=== PATIENT | female | born 1990 | race Caucasian/White ===

== ENCOUNTER 2017-08-23 11:34 | Emergency (ER) | payer BC, OTHER ==
[~2017-08-23] VITALS: Ht 167.6 cm; Wt 70.3 kg
[2017-08-23] MEDS ORDERED: ONDANSETRON 4 MG/2 ML (SDV) Z0FRAN ONE (13:24)
[2017-08-23] MEDS ORDERED: MIRT15TA PO (13:25)
[2017-08-23] MEDS ORDERED: ONDA4TAB8 SL (13:25)
[2017-08-23] MEDS ORDERED: ONDANSETRON 4 MG/2 ML (SDV) Z0FRAN IVP ONE (13:30)
[2017-08-23] MEDS ORDERED: NS IV 1000 ML 1,000 ML ONE (13:35)
[2017-08-23] MEDS ORDERED: NS IV 1000 ML 1,000 ML IV ONE (13:37)
[2017-08-23 13:51] LABS: BILIRUBIN,URINE NEGATIVE (NEGATIVE); CLARITY,URINE CLEAR; COLOR,URINE YELLOW; GLUCOSE, URINE (UA) NEGATIVE (NEGATIVE); KETONES,URINE 1+ (NEGATIVE); LEUKOCYTE ESTERASE ,URINE 1+ (NEGATIVE); NITRITE,URINE POSITIVE (NEGATIVE); PH,URINE 8 (5-9); PROTEIN,URINE NEGATIVE (NEGATIVE); UROBILINOGEN,URINE NORMAL (NORMAL)
--- NOTE | 2017-08-23 13:51 | ED General ---
General Chief Complaint: Abdominal/GI Problems Stated Complaint: VOMITTING/ DIARHEA/ CONFUSED Nursing Triage Note: PT STATES RLQ ABD PAIN AND NV, ABOUT A MONTH AGO WAS TOLD SHE HAD SUGAR IN HER URINE AND WILL GO TOMORROW TO SEE IF SHE HAS DIABETES. HAS BEEN GETTING SICK IN THE MORNINGS FOR ABOUT A MONTH. Nursing Sepsis Screen: No Definite Risk Source of Information: Patient Exam Limitations: No Limitations History of Present Illness Date Seen by Provider: August 23, 2017 Time Seen by Provider: 13:30 Initial Comments Here with report of intermittent nausea and vomiting daily. She is reportedly been noted to have diabetes and she is supposed to see Dr. Oleary tomorrow. She has been getting sick in the mornings daily for about a month. She is been started on metformin. Her blood sugar this morning was high on her meter. She has multiple episodes of blood sugar in the 300 range. She is recently started on metformin. Does complain of some bladder pain. Reports urinating a lot and having increased thirst. Timing/Duration: Getting Worse, Other (one month) Severity: Moderate Associated Systoms: No Chest Pain, No Cough, No Fever/Chills; Nausea/Vomiting; No Shortness of Air; Weakness Allergies and Home Medications Allergies Coded Allergies: azithromycin (Verified Allergy, Severe, 08/23/17) Home Medications Mirtazapine 15 Mg Tablet, 15 MG PO HS, (Reported) Ondansetron 4 Mg Tab.rapdis, 4 MG SL Q4H PRN for NAUSEA/VOMITING-1ST LINE, ( Reported) Patient Home Medication List Home Medication List Reviewed: Yes Review of Systems Constitutional: see HPI; No chills, No fever EENTM: no symptoms reported Respiratory: no symptoms reported; No cough, No short of breath Cardiovascular: no symptoms reported Gastrointestinal: abdominal pain, nausea, vomiting Genitourinary: frequency, pain : No Musculoskeletal: no symptoms reported Skin: no symptoms reported All Other Systems Reviewed Negative Unless Noted: Yes Past Ppfhvoo-Oyjncm-Nqxoet Hx Past Med/Social Hx: Reviewed Nursing Past Med/Soc Hx Patient Social History Alcohol Use: Denies Use Recreational Drug Use: Yes (THC) Smoking Status: Never a Smoker Recent Foreign Travel: No Contact w/Someone Who Travel: No Recent Infectious Disease Expo: No Recent Hopitalizations: No Seasonal Allergies Seasonal Allergies: Yes Past Medical History Surgeries: Yes (PLEURAL EFFUSION, UPPER AND LOWER GI) Respiratory: No Cardiac: No Neurological: No : No Last Menstrual Period: Aug 13, 2017 Female Reproductive Disorders: Ovarian Cyst Genitourinary: No Gastrointestinal: No Musculoskeletal: No Endocrine: No HEENT: No Cancer: No Psychosocial: Yes Anxiety, Depression Family Medical History Reviewed Nursing Family Hx Diabetes Physical Exam Vital Signs Vital Signs - First Documented 08/23/17 13:03 Temp 98.5 Pulse 67 Resp 20 B/P (MAP) 103/66 (78) Pulse Ox 96 O2 Delivery Room Air Capillary Refill : Less Than 3 Seconds General Appearance: No Apparent Distress, WD/WN HEENT: PERRL/EOMI, Pharynx Normal Neck: Non Tender, Supple Respiratory: Lungs Clear, Normal Breath Sounds Cardiovascular: Regular Rate, Rhythm, No Murmur Gastrointestinal: Non Tender, Soft Back: Normal Inspection, No CVA Tenderness, No Vertebral Tenderness Extremity: Normal Range of Motion, Non Tender Neurologic/Psychiatric: Alert, Oriented x3 Skin: Normal Color, Warm/Dry Progress/Results/Core Measures Suspected Sepsis Recent Fever Within 48 Hours: Yes Infection Criteria Present: None New/Unexplained Altered Menta: No Sepsis Screen: No Definite Risk SIRS Temperature:98.5 Pulse: 67 Respiratory Rate: 20 Laboratory Tests 08/23/17 13:10: White Blood Count 9.7 Blood Pressure 103 /66 Mean: 78 Laboratory Tests 08/23/17 13:10: Creatinine 0.81, Platelet Count 276, Total Bilirubin 0.5 Results/Orders Lab Results Laboratory Tests Test 08/23/17 13:00 08/23/17 13:10 Range/Units Urine Color YELLOW Urine Clarity CLEAR Urine pH 8 5-9 Urine Specific [place] 1.010 L 1.016-1.022 Urine Protein NEGATIVE NEGATIVE Urine Glucose (UA) NEGATIVE NEGATIVE Urine Ketones 1+ H NEGATIVE Urine Nitrite POSITIVE H NEGATIVE Urine Bilirubin NEGATIVE NEGATIVE Urine Urobilinogen NORMAL NORMAL MG/DL Urine Leukocyte Esterase 1+ H NEGATIVE Urine RBC (Auto) NEGATIVE NEGATIVE Urine RBC NONE /HPF Urine WBC 0-2 /HPF Urine Squamous Epithelial Cells 2-5 /HPF Urine Crystals NONE /LPF Urine Bacteria FEW H /HPF Urine Casts NONE /LPF Urine Mucus NEGATIVE /LPF Urine Culture Indicated YES White Blood Count 9.7 4.3-11.0 10^3/uL Red Blood Count 5.15 4.35-5.85 10^6/uL Hemoglobin 13.8 11.5-16.0 G/DL Hematocrit 40 35-52 % Mean Corpuscular Volume 78 L 80-99 FL Mean Corpuscular Hemoglobin 27 25-34 PG Mean Corpuscular Hemoglobin Concent 35 32-36 G/DL Red Cell Distribution Width 14.4 10.0-14.5 % Platelet Count 276 130-400 10^3/uL Mean Platelet Volume 11.0 H 7.4-10.4 FL Neutrophils (%) (Auto) 58 42-75 % Lymphocytes (%) (Auto) 35 12-44 % Monocytes (%) (Auto) 5 0-12 % Eosinophils (%) (Auto) 2 0-10 % Basophils (%) (Auto) 0 0-10 % Neutrophils # (Auto) 5.6 1.8-7.8 X 10^3 Lymphocytes # (Auto) 3.4 1.0-4.0 X 10^3 Monocytes # (Auto) 0.5 0.0-1.0 X 10^3 Eosinophils # (Auto) 0.2 0.0-0.3 10^3/uL Basophils # (Auto) 0.0 0.0-0.1 10^3/uL Sodium Level 139 135-145 MMOL/L Potassium Level 3.6 3.6-5.0 MMOL/L Chloride Level 105 98-107 MMOL/L Carbon Dioxide Level 23 21-32 MMOL/L Anion Gap 11 5-14 MMOL/L Blood Urea Nitrogen 7 7-18 MG/DL Creatinine 0.81 0.60-1.30 MG/DL Estimat Glomerular Filtration Rate > 60 BUN/Creatinine Ratio 9 Glucose Level 182 H 70-105 MG/DL Calcium Level 10.3 H 8.5-10.1 MG/DL Phosphorus Level 2.1 L 2.3-4.7 MG/DL Magnesium Level 1.9 1.8-2.4 MG/DL Total Bilirubin 0.5 0.1-1.0 MG/DL Aspartate Amino Transf (AST/SGOT) 17 5-34 U/L Alanine Aminotransferase (ALT/SGPT) 13 0-55 U/L Alkaline Phosphatase 90 40-136 U/L Total Protein 7.9 6.4-8.2 GM/DL Albumin 5.0 H 3.2-4.5 GM/DL My Orders Orders - JESS DUBON MD Ondansetron Injection (Zofran Injectio (08/23/17 13:30) Ondansetron Injection (Zofran Injectio (08/23/17 13:24) Cbc With Automated Diff (08/23/17 13:37) Comprehensive Metabolic Panel (08/23/17 13:37) Magnesium (08/23/17 13:37) Ua Culture If Indicated (08/23/17 13:37) Saline Lock/Iv-Start (08/23/17 13:37) Ns Iv 1000 Ml (Sodium Chloride 0.9%) (08/23/17 13:37) Phosphorus (08/23/17 13:37) Ns Iv 1000 Ml (Sodium Chloride 0.9%) (08/23/17 13:35) Urine Culture (08/23/17 13:00) Ceftriaxone Injection (Rocephin Injectio (08/23/17 14:45) Medications Given in ED Current Medications Medications Dose Ordered Sig/David Route Start Time Stop Time Status Last Admin Dose Admin Ceftriaxone Sodium 1000 mg/ Sodium Chloride 100 ml @ 200 mls/hr ONCE ONCE IV 08/23/17 14:45 08/23/17 15:14 DC 08/23/17 15:00 200 MLS/HR Ondansetron HCl 4 mg ONCE ONCE IVP 08/23/17 13:30 08/23/17 13:31 DC 08/23/17 13:31 4 MG Sodium Chloride 1,000 ml @ 0 mls/hr Q0M ONCE IV 08/23/17 13:37 08/23/17 13:39 DC 08/23/17 13:42 1,000 MLS/HR Vital Signs/I&O 08/23/17 13:03 Temp 98.5 Pulse 67 Resp 20 B/P (MAP) 103/66 (78) Pulse Ox 96 O2 Delivery Room Air Capillary Refill : Less Than 3 Seconds Blood Pressure Mean: 78 Progress Note : Progress Note Seen and evaluated. IV, labs, UA, normal saline 1 L bolus, Zofran 4 mg IV ordered. Monitor patient. 1440: Patient's blood sugar is actually better than anticipated and she only has 1+ ketones in the urine. She does have follow-up with her primary doctor tomorrow to establish care. We will give Rocephin 1 g IV now since she's had vomiting to treat a urinary tract infection and we will continue that outpatient with Abhijit with her to follow-up with her primary doctor tomorrow. 1530: Tolerated antibiotics well. We will discharge her for follow-up appointment tomorrow. I did verify that there is diabetic education available at the office if indicated. I will send a copy of the chart to Dr. Oleary. Discharged home with return precautions. Patient verbalize understanding instructions and agreement with plan. Departure Impression Primary Impression: Urinary tract infection Qualified Codes: N30.00 - Acute cystitis without hematuria Additional Impression: Acute hyperglycemia Disposition: HOME, SELF-CARE Condition: Improved Departure-Patient Inst. Decision time for Depature: 15:37 Referrals: KATIE OLEARY MD (PCP/Family) Primary Care Physician Patient Instructions: Hyperglycemia, Adult (DC), Urinary Tract Infection, Adult (DC) Add. Discharge Instructions: All discharge instructions reviewed with patient and/or family. Voiced understanding. Eat a low carb/low sugar diet. Drink plenty of fluids. Follow-up with Dr. Oleary tomorrow as scheduled. Take antibiotics as directed and you'll start your first dose in the morning. Return for worse pain, fever, vomiting, weakness, breathing problems or other concerns as needed. Take a copy of all of your blood sugar levels that you have recorded to the office with you to help with the termination of your medication needs. Scripts Cephalexin (Cephalexin) 500 Mg Tablet 500 MG PO BID, #14 TAB 0 Refills Prov: JESS DUBON MD 08/23/17 Copy Copies To 1: KATIE OLEARY MD, TIMOTHY D MD August 23, 2017 13:51
[2017-08-23 13:55] LABS: ALANINE AMINOTRANSFERASE 13 U/L (0-55); ALKALINE PHOSPHATASE 90 U/L (40-136); BILIRUBIN,TOTAL 0.5 MG/DL (0.1-1.0); BUN/CREATININE RATIO 9; CALCIUM 10.3 MG/DL (8.5-10.1); CARBON DIOXIDE 23 MMOL/L (21-32); CHLORIDE 105 MMOL/L (98-107); CREATININE SERUM 0.81 MG/DL (0.60-1.30); GFR ESTIMATED > 60; GLUCOSE 182 MG/DL (70-105); MAGNESIUM 1.9 MG/DL (1.8-2.4); PHOSPHORUS 2.1 MG/DL (2.3-4.7); POTASSIUM 3.6 MMOL/L (3.6-5.0); SODIUM 139 MMOL/L (135-145); TOTAL PROTEIN 7.9 GM/DL (6.4-8.2)
[2017-08-23 13:55] LABS: BACTERIA,URINE FEW /HPF; WBC,URINE 0-2 /HPF
[2017-08-23 13:56] LABS: BASOPHILS % (AUTO) 0 % (0-10); EOSINOPHILS # (AUTO) 0.2 10^3/uL (0.0-0.3); EOSINOPHILS % (AUTO) 2 % (0-10); HEMATOCRIT 40 % (35-52); HEMOGLOBIN 13.8 G/DL (11.5-16.0); LYMPHOCYTES # (AUTO) 3.4 X 10^3 (1.0-4.0); LYMPHOCYTES % (AUTO) 35 % (12-44); MEAN CORPUSCULAR HEMOGLOBIN 27 PG (25-34); MEAN CORPUSCULAR HGB CONC 35 G/DL (32-36); MEAN CORPUSCULAR VOLUME 78 FL (80-99); MONOCYTES # (AUTO) 0.5 X 10^3 (0.0-1.0); MONOCYTES % (AUTO) 5 % (0-12); NEUTROPHILS # (AUTO) 5.6 X 10^3 (1.8-7.8); NEUTROPHILS % (AUTO) 58 % (42-75); PLATELET COUNT 276 10^3/uL (130-400); RED BLOOD COUNT 5.15 10^6/uL (4.35-5.85); RED CELL DISTRIBUTION WIDTH 14.4 % (10.0-14.5); WHITE BLOOD COUNT 9.7 10^3/uL (4.3-11.0)
[2017-08-23] MEDS ORDERED: cefTRIAXone INJECTION 1,000 MG in NS (IVPB) 100 ML IV ONE (14:45)
[2017-08-23] MEDS ORDERED: CEPH500T PO (15:40)
[2017-08-23 15:55] VITALS: BP 102/77
== END 2017-08-23 15:55 | disposition home or self-care (01) ==
LOC: ER 11:40
DX: N39.0 Urinary tract infection, site not specified (principal); E11.65 Type 2 diabetes mellitus with hyperglycemia; F41.9 Anxiety disorder, unspecified; F32.9 Major depressive disorder, single episode, unspecified; F12.90 Cannabis use, unspecified, uncomplicated; Z87.42 Personal history of other diseases of the female genital tract; Z88.1 Allergy status to other antibiotic agents
CPT/HCPCS: 36415; 80053; 81000; 82962; 83735; 84100; 85025; 87088; 96361; 96374; 96375

== ENCOUNTER → 2019-05-07 | Outpatient (CLI) | payer BC, OTHER ==
[~2019-05-07] MED LIST: CEPH500T PO; MIRT15TA PO; ONDA4TAB8 SL
--- NOTE | 2019-05-07 14:49 | Diagnostic Imaging Report ---
INDICATION: Diabetes mellitus type I. TECHNIQUE: Patient was administered 1 mCi technetium 99m sulfur colloid labeled to a test meal and imaging over the abdomen was performed. FINDINGS: The raw data T1/2 for gastric emptying is calculated to be approximately 38 minutes. Normal values are 30 to 90 minutes. IMPRESSION: Normal gastric emptying. Dictated by: Dictated on workstation # [id number]
== END ==
LOC: CARD 08:58
PROVIDERS: ATTEND Nurse Practitioner Family
DX: E11.9 Type 2 diabetes mellitus without complications (principal)
CPT/HCPCS: 78264

== ENCOUNTER 2019-09-23 14:44 | Emergency (ER) | payer OTHER ==
[~2019-09-23] VITALS: Ht 167 cm; Wt 73.9 kg
--- NOTE | 2019-09-23 15:24 | ED General ---
General Stated Complaint: HIGH BLOOD SUGAR Source of Information: Patient Exam Limitations: No Limitations History of Present Illness Date Seen by Provider: Sep 23, 2019 Time Seen by Provider: 15:23 Initial Comments To ER with high blood sugar too high to read. She had some nausea and not felt well in general for about 3 days. 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 She has been a known diabetic for about 3 years and insulin-dependent for about 7 months. She follows with an continuous crusher operator from [place], is new to the [facility] and does not have primary care. She does have an adequate supply of insulin at home. Timing/Duration: 2-3 Days Severity: Moderate Associated Systoms: Nausea/Vomiting Allergies and Home Medications Allergies Coded Allergies: azithromycin (Verified Allergy, Severe, 08/23/17) Home Medications Cephalexin 500 Mg Tablet, 500 MG PO BID Prescribed by: JESS DUBON on 08/23/17 1540 Mirtazapine 15 Mg Tablet, 15 MG PO HS, (Reported) Ondansetron 4 Mg Tab.rapdis, 4 MG SL Q4H PRN for NAUSEA/VOMITING-1ST LINE, (Reported) Patient Home Medication List Home Medication List Reviewed: Yes Review of Systems Review of Systems Constitutional: see HPI EENTM: see HPI Respiratory: no symptoms reported Cardiovascular: no symptoms reported Genitourinary: no symptoms reported Musculoskeletal: no symptoms reported Skin: no symptoms reported Psychiatric/Neurological: No Symptoms Reported Hematologic/Lymphatic: No Symptoms Reported Past Conzpwr-Tottih-Owraao Hx Patient Social History Recent Foreign Travel: No Contact w/Someone Who Travel: No Recent Hopitalizations: No Seasonal Allergies Seasonal Allergies: Yes Past Medical History Surgeries: Yes (PLEURAL EFFUSION, UPPER AND LOWER GI) Respiratory: No Cardiac: No Neurological: No Female Reproductive Disorders: Ovarian Cyst Genitourinary: No Gastrointestinal: No Musculoskeletal: No Endocrine: No HEENT: No Cancer: No Psychosocial: Yes Anxiety, Depression Family Medical History Diabetes Physical Exam Vital Signs Vital Signs - First Documented 09/23/19 15:05 Temp 36.5 Pulse 69 Resp 20 B/P (MAP) 108/64 (79) Pulse Ox 98 O2 Delivery Room Air Capillary Refill : Height, Weight, BMI Height: 5'6.00" Weight: 155lbs. oz. 70.125157bp; BMI Method:Stated General Appearance: No Apparent Distress, WD/WN, Other (alert oriented very pleasant) Eyes: Bilateral Eye Normal Inspection, Bilateral Eye PERRL, Bilateral Eye EOMI Neck: Full Range of Motion, Normal Inspection Respiratory: No Accessory Muscle Use, No Respiratory Distress Cardiovascular: Regular Rate, Rhythm, Normal Peripheral Pulses Gastrointestinal: Normal Bowel Sounds, Non Tender, Soft Extremity: Normal Capillary Refill, Normal Inspection Neurologic/Psychiatric: Alert, Oriented x3 Skin: Normal Color, Warm/Dry Progress/Results/Core Measures Suspected Sepsis SIRS Temperature: Pulse: Respiratory Rate: Laboratory Tests 09/23/19 15:15: White Blood Count 8.7 Blood Pressure / Mean: Laboratory Tests 09/23/19 15:15: Creatinine 0.99, Platelet Count 294, Total Bilirubin 0.3 Results/Orders Lab Results Laboratory Tests Test 09/23/19 15:15 09/23/19 15:19 09/23/19 15:25 Range/Units White Blood Count 8.7 4.3-11.0 10^3/uL Red Blood Count 5.25 4.35-5.85 10^6/uL Hemoglobin 13.1 11.5-16.0 G/DL Hematocrit 40 35-52 % Mean Corpuscular Volume 75 L 80-99 FL Mean Corpuscular Hemoglobin 25 25-34 PG Mean Corpuscular Hemoglobin Concent 33 32-36 G/DL Red Cell Distribution Width 14.9 H 10.0-14.5 % Platelet Count 294 130-400 10^3/uL Mean Platelet Volume 10.7 H 7.4-10.4 FL Neutrophils (%) (Auto) 63 42-75 % Lymphocytes (%) (Auto) 30 12-44 % Monocytes (%) (Auto) 5 0-12 % Eosinophils (%) (Auto) 2 0-10 % Basophils (%) (Auto) 0 0-10 % Neutrophils # (Auto) 5.5 1.8-7.8 X 10^3 Lymphocytes # (Auto) 2.6 1.0-4.0 X 10^3 Monocytes # (Auto) 0.5 0.0-1.0 X 10^3 Eosinophils # (Auto) 0.2 0.0-0.3 10^3/uL Basophils # (Auto) 0.0 0.0-0.1 10^3/uL Sodium Level 136 135-145 MMOL/L Potassium Level 3.9 3.6-5.0 MMOL/L Chloride Level 102 98-107 MMOL/L Carbon Dioxide Level 22 21-32 MMOL/L Anion Gap 12 5-14 MMOL/L Blood Urea Nitrogen 10 7-18 MG/DL Creatinine 0.99 0.60-1.30 MG/DL Estimat Glomerular Filtration Rate > 60 BUN/Creatinine Ratio 10 Glucose Level 299 H 70-105 MG/DL Calcium Level 9.6 8.5-10.1 MG/DL Corrected Calcium 8.5-10.1 MG/DL Total Bilirubin 0.3 0.1-1.0 MG/DL Aspartate Amino Transf (AST/SGOT) 18 5-34 U/L Alanine Aminotransferase (ALT/SGPT) 14 0-55 U/L Alkaline Phosphatase 89 40-136 U/L Total Protein 8.1 6.4-8.2 GM/DL Albumin 4.7 H 3.2-4.5 GM/DL Beta-Hydroxybutyrate (Chem panel) 0.06 0.00-0.27 MMOL/L Serum Test, Qualitative NEGATIVE NEGATIVE Glucometer 279 H 70-110 MG/DL Urine Color YELLOW Urine Clarity CLEAR Urine pH 6.5 5-9 Urine Specific [place] <=1.005 1.016-1.022 Urine Protein NEGATIVE NEGATIVE Urine Glucose (UA) 3+ H NEGATIVE Urine Ketones NEGATIVE NEGATIVE Urine Nitrite NEGATIVE NEGATIVE Urine Bilirubin NEGATIVE NEGATIVE Urine Urobilinogen 0.2 < = 1.0 MG/DL Urine Leukocyte Esterase NEGATIVE NEGATIVE Urine RBC (Auto) NEGATIVE NEGATIVE Urine RBC NONE /HPF Urine WBC NONE /HPF Urine Squamous Epithelial Cells 2-5 /HPF Urine Crystals PRESENT H /LPF Urine Amorphous Sediment RARE BARBARA URATES H /LPF Urine Bacteria TRACE /HPF Urine Casts NONE /LPF Urine Mucus NEGATIVE /LPF Urine Culture Indicated NO My Orders Orders - FAVIO JORDAN DAIRY HUSBANDRY WORKER Cbc With Automated Diff (09/23/19 15:17) Comprehensive Metabolic Panel (09/23/19 15:17) Hcg,Qualitative Serum (09/23/19 15:17) Beta Hydroxybutyrate (09/23/19 15:17) Ua Culture If Indicated (09/23/19 15:17) Ed Iv/Invasive Line Start (09/23/19 15:17) Lactated Ringers (Lr 1000 Ml Iv Solution (09/23/19 15:30) Lactated Ringers (Lr 1000 Ml Iv Solution (09/23/19 15:30) Ondansetron Injection (Zofran Injectio (09/23/19 15:30) Medications Given in ED Current Medications Medications Dose Ordered Sig/David Route Start Time Stop Time Status Last Admin Dose Admin Ondansetron HCl 8 mg ONCE ONCE IVP 09/23/19 15:30 09/23/19 15:31 DC 09/23/19 15:25 8 MG Vital Signs/I&O 09/23/19 15:05 Temp 36.5 Pulse 69 Resp 20 B/P (MAP) 108/64 (79) Pulse Ox 98 O2 Delivery Room Air Capillary Refill : Departure Communication (Admissions) She does report that she stopped her Rexulti suddenly last week. That would be a potential reason for some of the nausea and vomiting that she's been having. However this could be related to her hyperglycemia. Awaiting her labs are unremarkable and after Zofran and 1 L of fluids she already feels much better. We will discharge to home have her follow up with her continuous crusher operator. Impression Primary Impression: Type 1 diabetes mellitus Qualified Codes: E10.69 - Type 1 diabetes mellitus with other specified complication Additional Impression: Nausea and vomiting Qualified Codes: R11.2 - Nausea with vomiting, unspecified Disposition: 09 ADMITTED INPATIENT Condition: Stable Departure-Patient Inst. Decision time for Depature: 16:42 Referrals: NO,LOCAL PHYSICIAN (PCP/Family) Primary Care Physician Patient Instructions: Type 1 Diabetes Add. Discharge Instructions: 1. Return to ER for any concerns 2. Follow-up with her doctor next week 3. FAVIO JORDAN DAIRY HUSBANDRY WORKER Sep 23, 2019 15:24
[2019-09-23] MEDS: LACTATED RINGERS 1,000 ML IV SCH ×2 (15:25→16:39)
[2019-09-23 15:27] LABS: BASOPHILS % (AUTO) 0 % (0-10); EOSINOPHILS # (AUTO) 0.2 10^3/uL (0.0-0.3); EOSINOPHILS % (AUTO) 2 % (0-10); HEMATOCRIT 40 % (35-52); HEMOGLOBIN 13.1 G/DL (11.5-16.0); LYMPHOCYTES # (AUTO) 2.6 X 10^3 (1.0-4.0); LYMPHOCYTES % (AUTO) 30 % (12-44); MEAN CORPUSCULAR HEMOGLOBIN 25 PG (25-34); MEAN CORPUSCULAR HGB CONC 33 G/DL (32-36); MEAN CORPUSCULAR VOLUME 75 FL (80-99); MEAN PLATELET VOLUME 10.7 FL (7.4-10.4); MONOCYTES # (AUTO) 0.5 X 10^3 (0.0-1.0); MONOCYTES % (AUTO) 5 % (0-12); NEUTROPHILS # (AUTO) 5.5 X 10^3 (1.8-7.8); NEUTROPHILS % (AUTO) 63 % (42-75); PLATELET COUNT 294 10^3/uL (130-400); RED CELL DISTRIBUTION WIDTH 14.9 % (10.0-14.5); WHITE BLOOD COUNT 8.7 10^3/uL (4.3-11.0)
[2019-09-23] MEDS ORDERED: ONDANSETRON 4 MG/2 ML (SDV) Z0FRAN IVP ONE (15:30)
[2019-09-23] MEDS ORDERED: LACTATED RINGERS 1,000 ML IV SCH (15:30)
[2019-09-23 15:33] LABS: BILIRUBIN,URINE NEGATIVE (NEGATIVE); CLARITY,URINE CLEAR; COLOR,URINE YELLOW; GLUCOSE, URINE (UA) 3+ (NEGATIVE); KETONES,URINE NEGATIVE (NEGATIVE); LEUKOCYTE ESTERASE ,URINE NEGATIVE (NEGATIVE); NITRITE,URINE NEGATIVE (NEGATIVE); PH,URINE 6.5 (5-9); PROTEIN,URINE NEGATIVE (NEGATIVE)
[2019-09-23 15:39] LABS: ALBUMIN 4.7 GM/DL (3.2-4.5); CHLORIDE 102 MMOL/L (98-107); POTASSIUM 3.9 MMOL/L (3.6-5.0); SODIUM 136 MMOL/L (135-145)
[2019-09-23 15:40] LABS: CALCIUM 9.6 MG/DL (8.5-10.1)
[2019-09-23 15:41] LABS: GLUCOSE 299 MG/DL (70-105); TOTAL PROTEIN 8.1 GM/DL (6.4-8.2)
[2019-09-23 15:42] LABS: CARBON DIOXIDE 22 MMOL/L (21-32)
[2019-09-23 15:43] LABS: BILIRUBIN,TOTAL 0.3 MG/DL (0.1-1.0)
[2019-09-23 15:45] LABS: ALKALINE PHOSPHATASE 89 U/L (40-136); CREATININE SERUM 0.99 MG/DL (0.60-1.30); GFR ESTIMATED > 60
[2019-09-23 15:46] LABS: BUN/CREATININE RATIO 10
[2019-09-23 15:48] LABS: ALANINE AMINOTRANSFERASE 14 U/L (0-55)
--- NOTE | 2019-09-23 16:12 | NUR ---
Pt took five units of Novolog Flex pen at this time per Alex Taylor
[2019-09-23 16:16] LABS: AMORPHOUS SEDIMENT,UR RARE AMOR URATES /LPF; BACTERIA,URINE TRACE /HPF
[2019-09-23 17:35] VITALS: BP 115/74
--- OUTSIDE RECORDS SUMMARY | 2019-09-23 19:50 | XMS REPORT | Continuity of Care Document ---
Author Organization Unknown Address Unknown Phone Unavailable Allergies Active Description Code Type Severity Reaction Onset Reported/Identified Relationship to Patient Clinical Status Yes azithromycin [id number] Drug Allergy Severe N/A 08/23/2017 Medications There is no data. Problems Date Dx Coded Attending Type Code Diagnosis Diagnosed By 08/23/2017 JESS DUBON MD, Ot E11.65 TYPE 2 DIABETES MELLITUS WITH HYPERGLYCE 08/23/2017 JESS DUBON MD, Ot F12.90 CANNABIS USE, UNSPECIFIED, UNCOMPLICATED 08/23/2017 JESS DUBON MD, Ot F32.9 MAJOR DEPRESSIVE DISORDER, SINGLE EPISOD 08/23/2017 JESS DUBON MD, Ot F41.9 ANXIETY DISORDER, UNSPECIFIED 08/23/2017 JESS DUBON MD Ot N39.0 URINARY TRACT INFECTION, SITE NOT SPECIF 08/23/2017 JESS DUBON MD Ot R10.31 RIGHT LOWER QUADRANT PAIN 08/23/2017 JESS DUBON MD Ot Z87.42 PERSONAL HISTORY OF OTH DISEASES OF THE 08/23/2017 JESS DUBON MD Ot Z88.1 ALLERGY STATUS TO OTHER ANTIBIOTIC AGENT 08/30/2017 JESS DUBON MD, Ot E11.65 TYPE 2 DIABETES MELLITUS WITH HYPERGLYCE 08/30/2017 JESS DUBON MD Ot F12.90 CANNABIS USE, UNSPECIFIED, UNCOMPLICATED 08/30/2017 JESS DUBON MD Ot F32.9 MAJOR DEPRESSIVE DISORDER, SINGLE EPISOD 08/30/2017 JESS DUBON MD Ot F41.9 ANXIETY DISORDER, UNSPECIFIED 08/30/2017 JESS DUBON MD Ot N39.0 URINARY TRACT INFECTION, SITE NOT SPECIF 08/30/2017 JESS DUBON MD Ot R10.31 RIGHT LOWER QUADRANT PAIN 08/30/2017 JESS DUBON MD Ot Z87.42 PERSONAL HISTORY OF OTH DISEASES OF THE 08/30/2017 JESS DUBON MD, Ot Z88.1 ALLERGY STATUS TO OTHER ANTIBIOTIC AGENT 05/09/2019 BOEMAYA BERMAN [employer]SULTANT Ot E11.9 TYPE 2 DIABETES MELLITUS WITHOUT COMPLIC 08/08/2019 BOEMAYA BERMAN [employer] DEVELOPMENT CONSULTANT Ot E11.9 TYPE 2 DIABETES MELLITUS WITHOUT COMPLIC 08/08/2019 BOEMAYA BERMAN [employer] IND[employer]RIAL DEVELOPMENT CONSULTANT Ot E11.9 TYPE 2 DIABETES MELLITUS WITHOUT COMPLIC 08/09/2019 BOEMAYA BERMAN [employer] IND[employer]RIAL DEVELOPMENT CONSULTANT Ot E11.9 TYPE 2 DIABETES MELLITUS WITHOUT COMPLIC 08/21/2019 BOEMAYA BERMAN [employer] IND[employer]RIAL DEVELOPMENT CONSULTANT Ot E11.9 TYPE 2 DIABETES MELLITUS WITHOUT COMPLIC 09/23/2019 BOEMAYA BERMAN [employer] DEVELOPMENT CONSULTANT Ot E11.9 TYPE 2 DIABETES MELLITUS WITHOUT COMPLIC Procedures There is no data. Results Test Result Range Complete urinalysis with reflex to cultu re - 08/23/17 13:00 Urine color determination YELLOW NRG Urine clarity determination CLEAR NR G Urine pH measurement by test strip 8 5-9 Specific gravity of urine by test strip 1.010 1.016-1.022 Urine protein assay by test strip, semi-quantitative NEGATIVE NEGATIVE Urine glucose detection by automated test strip NE GATIVE NEGATIVE Erythrocytes detection in urine sediment by light micr oscopy NEGATIVE NEGATIVE Urine ketones detection by automated test strip 1+ NEGATIVE Urine nitrite detection by test strip POSITIVE NEGATIVE Urine total bilirubin detection by test strip NEGA TIVE NEGATIVE Urine urobilinogen measurement by automated test strip (mass/volume) NORMAL NORMAL Urine leukocyte esterase detection by dipstick 1+ NEGATIVE Automated urine sediment erythrocyte cou nt by microscopy (number/high power field) NONE NRG Automated urine sediment leukocyte count by microscopy (number/high power field) [HPF] NRG Bacteria detection in urine sediment by light microsco py FEW NRG Squamous epithelial cells detection in u rine sediment by light microscopy 2-5 NRG Crystals detection in urine sediment by light microsco py NONE NRG Casts detection in urine sediment by light microscopy NONE NRG Mucus detection in urine sediment by light microscopy NEGATIVE NRG Complete urinalysis with reflex to culture YES NRG Bacterial urine culture - 08/23/17 13:00 URINE CULTURE RESULTS 10,000/ML - 100,000/ML NRG Comprehensive metabolic panel - 08/23/17 13:10 Serum or plasma sodium measurement (moles/volume) 139 mmol/L 135-145 Serum or plasma potassium measurement (moles/volume) 3.6 mmol/L 3.6-5.0 Serum or plasma chloride measurement (moles/volume) 105 mmol/L 98-107 Carbon dioxide 23 mmol/L 21-32 Serum or plasma anion gap determination (moles/volume) 11 mmol/L 5-14 Serum or plasma urea nitrogen measurement (mass/volume ) 7 mg/dL 7-18 Serum or plasma creatinine measurement (mass/volume) 0.81 mg/dL 0.60-1.30 Serum or plasma urea nitrogen/creatinine mass ratio 9 NRG Serum or plasma creatinine measurement w ith calculation of estimated glomerular filtration rate > NRG Serum or plasma glucose measurement (mass/volume) 182 mg/dL 70-105 Serum or plasma calcium measurement (mass/volume) 10.3 mg/dL 8.5-10.1 Serum or plasma total bilirubin measurement (mass/volu me) 0.5 mg/dL 0.1-1.0 Serum or plasma alkaline phosphatase amber surement (enzymatic activity/volume) 90 U/L 40-136 Serum or plasma aspartate aminotransfera se measurement (enzymatic activity/volume) 17 U/L 5-34 Serum or plasma alanine aminotransferase measurement (enzymatic activity/volume) 13 U/L 0-55 Serum or plasma protein measurement (mass/volume) 7.9 g/dL 6.4-8.2 Serum or plasma albumin measurement (mass/volume) 5.0 g/dL 3.2-4.5 Serum or plasma phosphate measurement (m ass/volume) - 08/23/17 13:10 Serum or plasma phosphate measurement (mass/volume) 2.1 mg/dL 2.3-4.7 Magnesium - 08/23/17 13:10 Magnesium 1.9 mg/dL 1.8-2.4 Complete blood count (CBC) with automate d white blood cell (WBC) differential - 08/23/17 13:10 Blood leukocytes automated count (number/volume) 9.7 10*3/uL 4.3-11.0 Blood erythrocytes automated count (number/volume) 5.15 10*6/uL 4.35-5.85 Venous blood hemoglobin measurement (mass/volume) 13.8 g/dL 11.5-16.0 Blood hematocrit (volume fraction) 40 % 35-52 Automated erythrocyte mean corpuscular volume 78 [ foz_us] 80-99 Automated erythrocyte mean corpuscular h emoglobin (mass per erythrocyte) 27 pg 25-34 Automated erythrocyte mean corpuscular h emoglobin concentration measurement (mass/volume) 35 g/dL 32-36 Automated erythrocyte distribution width ratio 14. 4 % 10.0- 14.5 Automated blood platelet count (count/volume) 276 10*3/uL 130-400 Automated blood platelet mean volume measurement 11.0 [foz_us] 7.4-10.4 Automated blood neutrophils/100 leukocytes 58 % 42-75 Automated blood lymphocytes/100 leukocytes 35 % 12-44 Blood monocytes/100 leukocytes 5 % 0-12 Automated blood eosinophils/100 leukocytes 2 % 0-10 Automated blood basophils/100 leukocytes 0 % 0-10 Blood neutrophils automated count (number/volume) 5.6 10*3 1.8-7.8 Blood lymphocytes automated count (number/volume) 3.4 10*3 1.0-4.0 Blood monocytes automated count (number/volume) 0. 5 10*3 0.0-1.0 Automated eosinophil count 0.2 10*3/uL 0 .0-0.3 Automated blood basophil count (count/volume) 0.0 10*3/uL 0.0-0.1 Capillary blood glucose measurement by g lucometer (mass/volume) - 08/23/17 15:40 Capillary blood glucose measurement by glucometer (mas s/volume) 122 mg/dL 70-110 Encounters ACCT No. Visit Date/Time Discharge Status Pt. Type Provider Facility Loc./Unit Complaint [id number] 09/23/2019 14:46:00 17:36:00 DIS Emergency FAVIO JORDAN APRN [facility] ER HIGH BLOOD SUGAR [id number] 05/07/2019 08:58:00 23:59:59 CLS Outpatient MAYA PURVIS APRN [facility] CARD DIABETES MELLIT US TYPE 1 [id number] 08/29/2017 07:42:00 23:59:59 CLS Preadmit MAMTA SPARKS, KATIE reynoso [facility] DSME TYPE 2 DIABETES [id number] 08/23/2017 11:40:00 05/09/2 018 15:55:00 DIS Emergency LING SPARKS, JESS Alcala [facility] ER VOMITTING/ DIAR TERRI/ EMILIO
== END 2019-09-23 17:36 | disposition home or self-care (01) ==
LOC: EDUNIT# 14:44 → ER 14:46
DX: E10.65 Type 1 diabetes mellitus with hyperglycemia (principal); R11.2 Nausea with vomiting, unspecified; F41.9 Anxiety disorder, unspecified; F32.9 Major depressive disorder, single episode, unspecified; Z88.1 Allergy status to other antibiotic agents; Z79.4 Long term (current) use of insulin
CPT/HCPCS: 36415; 80053; 81000; 82010; 82962; 84703; 85025

== ENCOUNTER 2020-01-08 22:27 | Emergency (ER) | payer OTHER ==
[~2020-01-08] VITALS: Ht 167.7 cm; Wt 72.6 kg
[2020-01-08 23:07] LABS: BASOPHILS % (AUTO) 0 % (0-10); EOSINOPHILS # (AUTO) 0.1 10^3/uL (0.0-0.3); EOSINOPHILS % (AUTO) 2 % (0-10); HEMATOCRIT 37 % (35-52); HEMOGLOBIN 12.1 g/dL (11.5-16.0); LYMPHOCYTES # (AUTO) 1.8 10^3/uL (1.0-4.0); LYMPHOCYTES % (AUTO) 41 % (12-44); MEAN CORPUSCULAR HEMOGLOBIN 24 pg (25-34); MEAN CORPUSCULAR HGB CONC 33 g/dL (32-36); MEAN CORPUSCULAR VOLUME 75 fL (80-99); MEAN PLATELET VOLUME 11.5 fL (9.0-12.2); MONOCYTES # (AUTO) 0.3 10^3/uL (0.0-1.0); MONOCYTES % (AUTO) 7 % (0-12); NEUTROPHILS # (AUTO) 2.3 10^3/uL (1.8-7.8); NEUTROPHILS % (AUTO) 50 % (42-75); PLATELET COUNT 274 10^3/uL (130-400); WHITE BLOOD COUNT 4.5 10^3/uL (4.3-11.0)
[2020-01-08 23:17] LABS: PROTHROMBIN TIME PATIENT 13.2 SEC (12.2-14.7)
[2020-01-08 23:24] LABS: ERYTHROCYTE SEDIMENTATION RATE 14 MM/HR (0-20)
--- NOTE | 2020-01-09 00:12 | ED Respiratory ---
General Chief Complaint: Chest Pain Stated Complaint: COVID +/CHEST PAIN/SOA Nursing Triage Note: PT AMBULATE TO ROOM 05 WITH C/O CHEST PAIN/SOA STARTING THIS AFTERNOON. PT REPORTS SHE IS COVID POSITIVE. Source: patient History of Present Illness Date Seen by Provider: Jan 08, 2020 Time Seen by Provider: 22:48 Initial Comments PT ARRIVES VIA POV FROM HOME PT STATES SHE BEGAN GETTING SICK 1 WEEK AGO-LAST Monday01/01/20 PT HAS HAD NON-PRODUCTIVE COUGH HAS HAD FEVER UP TO 101, TEMP WAS 99.9 TODAY C/O SHORTNESS OF BREATH C/O SORE THROAT C/O LOSS OF TASTE AND SMELL C/O MUCH FATIGUE C/O HEADACHE C/O BODY ACHES C/O NAUSEA, NO VOMITING, BUT HAS HAD DIARRHEA PT WAS SEEN AT [facility] LAST MONDAY AND HAD STREP, FLU AND RAPID COVID TESTING DONE--ALL WERE NEGATIVE, AND PT WAS STARTED ON DOXYCYCLINE. PT DID NOT IMPROVE AFTER 4 DAYS, SO CALLED DR. DEVI, WHO CALLED IN RX FOR AUGMENTIN ON 01/06/20--TOOK 1 PILL ON Monday01/05/20, SHE WENT TO [facility] FOR PERSISTENT SYMPTOMS, AND COVID TESTING WAS DONE AGAIN AND WAS NOW POSITIVE, SO AUGMENTIN WAS DISCONTINUED. NO NEW RX'S GIVEN PT STATES THIS AFTERNOON, SHE BEGAN HAVING SHARP PAIN IN HER MID CHEST, AND INCREASED SHORTNESS OF BREATH--PAIN WORSE WITH DEEP BREATHS--HAS NOT TAKEN ANYTHING FOR PAIN PT IS TYPE 1 DIABETIC PT STATES WHEN SHE WAS YOUNG, SHE HAD TO BE HOSPITALIZED FOR PNEUMONIA AND HAD LEFT CHEST TUBE PLACED TO DRAIN THE INFECTION STATES SHE HAS NOT HAD ANY SIGNIFICANT RESPIRATORY PROBLEMS SINCE THEN, NOR BEEN DIAGNOSED WITH ASTHMA, BUT HAS BEEN PRESCRIBED AN INHALER IN THE PAST FOR OCCASIONAL MILD RESPIRATORY SYMPTOMS, BUT HAS NOT USED IT FOR A LONG TIME PT DOES NOT SMOKE PT STATES SHE LIVES WITH HER , WHO IS NOT HAVING ANY SYMPTOMS, BUT HAVE BOTH BEEN QUARANTINED SINCE LAST WEEK PT STATES HER MOTHER HAS TESTED POSITIVE FOR COVID, WELL--PT STATES THAT SHE WAS WITH HER MOTHER LAST WEEK, BEFORE SHE WAS RE-TESTED ON MONDAY AND WAS FOUND TO BE POSITIVE. PCP: DR. DEVI Allergies and Home Medications Allergies Coded Allergies: azithromycin (Verified Allergy, Severe, 08/23/17) Home Medications Albuterol Sulfate 1 Puff Puff, 2 PUFF IH Q4H 1 PUFF = 90 MCG Prescribed by: ROM MCKEON on 01/09/2058 Cephalexin 500 Mg Tablet, 500 MG PO BID Prescribed by: JESS DUBON on 08/23/17 1540 Fluticasone/Salmeterol 1 Each Blst.w.dev, 1 EACH IH BID Prescribed by: ROM MCKEON on 01/09/2058 Mirtazapine 15 Mg Tablet, 15 MG PO HS, (Reported) Ondansetron 4 Mg Tab.rapdis, 4 MG SL Q4H PRN for NAUSEA/VOMITING-1ST LINE, (Reported) Ondansetron 4 Mg Tab.rapdis, 4 MG PO Q4H Prescribed by: ROM MCKEON on 01/09/2058 Tramadol HCl 50 Mg Tablet, 50 MG PO Q6H PRN for PAIN Prescribed by: ROM MCKEON on 01/09/2058 Patient Home Medication List Home Medication List Reviewed: Yes Review of Systems Review of Systems Constitutional: see HPI, fever, malaise, weakness EENTM: see HPI, nose congestion, throat pain Respiratory: see HPI, cough; No phlegm; short of breath Cardiovascular: chest pain; No edema, No syncope, No vascular heart diseas Gastrointestinal: see HPI; No abdominal pain; diarrhea, loss of appetite, nausea; No vomiting Genitourinary: no symptoms reported Musculoskeletal: see HPI Skin: other (HAD HIVES ON UPPER BACK YESTERDAY--LASTED A FEW HOURS AND WENT AWAY) Psychiatric/Neurological: See HPI, Headache; Denies Numbness, Denies Paresthesia, Denies Seizure, Denies Tingling, Denies Weakness Hematologic/Lymphatic: No Symptoms Reported Immunological/Allergic: no symptoms reported Past Crpqopo-Cvlljl-Kgadeh Hx Past Med/Social Hx: Reviewed and Corrections made Patient Social History Alcohol Use: Denies Use Recreational Drug Use: No Smoking Status: Never a Smoker 2nd Hand Smoke Exposure: No Recent Foreign Travel: No Contact w/Someone Who Travel: No Recent Infectious Disease Expo: No Recent Hopitalizations: No Physical Abuse: No Sexual Abuse: No Mistreated: No Fear: No Seasonal Allergies Seasonal Allergies: Yes Past Medical History Surgeries: Yes (PLEURAL EFFUSION-LEFT CHEST TUBE WITH PNEUMONIA CHILD;EGD/C- SCOPE) Respiratory: Yes (PNEUMONIA WITH LEFT CHEST TUBE CHILD;OCCASIONAL RESP INFECTION) Cardiac: No Neurological: No : No Reproductive Disorders: Yes (PT AND WITH INFERTILITY) Female Reproductive Disorders: Ovarian Cyst Genitourinary: No Gastrointestinal: No Musculoskeletal: No Endocrine: Yes (TYPE 1 DIABETES) Diabetes, Insulin dep HEENT: No Cancer: No Psychosocial: Yes Anxiety, Depression Integumentary: No Blood Disorders: No Family Medical History Diabetes Physical Exam Vital Signs - First Documented 01/08/20 01/09/20 22:59 01:20 Temp 36.9 Pulse 68 Resp 19 B/P (MAP) 128/85 (99) Pulse Ox 99 O2 Delivery Room Air Capillary Refill : Less Than 3 Seconds Height: 5'6.00" Weight: 155lbs. oz. [id number]; 25.00 BMI Method:Stated General Appearance: WD/WN, no apparent distress, other (DOES NOT APPEAR ILL) HEENT: PERRL/EOMI, normal ENT inspection, TMs normal, pharynx normal Neck: non-tender, full range of motion, supple, normal inspection Respiratory: chest non-tender, lungs clear, normal breath sounds, no respiratory distress, no accessory muscle use Cardiovascular: normal peripheral pulses, regular rate, rhythm, no edema, no gallop, no JVD, no murmur Gastrointestinal: normal bowel sounds, non tender, soft, no organomegaly, no pulsatile mass Extremities: normal range of motion, non-tender, normal inspection, no pedal edema, no calf tenderness, normal capillary refill Neurologic/Psychiatric: hearing therapist II-XII nml as tested, no motor/sensory deficits, alert, normal mood/affect, oriented x 3 Skin: normal color, warm/dry; No rash NO BACK TENDERNESS Focused Exam Lactate Level 01/08/20 23:00: Lactic Acid Level 0.90 Lactic Acid Level Laboratory Tests Test 01/08/20 23:00 Lactic Acid Level 0.90 MMOL/L (0.50-2.00) Progress/Results/Core Measures Suspected Sepsis Recent Fever Within 48 Hours: Yes Infection Criteria Present: Documented Infection New/Unexplained Altered Menta: No Sepsis Screen: No Definite Risk SIRS Temperature: Pulse: 68 Respiratory Rate: 19 Laboratory Tests 01/08/20 22:56: White Blood Count 4.5 Blood Pressure 128 /85 Mean: 99 01/08/20 23:00: Lactic Acid Level 0.90 Laboratory Tests 01/08/20 22:56: INR Comment 1.0, Platelet Count 274 01/08/20 23:50: Creatinine 0.78, Total Bilirubin 0.3 Results/Orders Lab Results Laboratory Tests Test 01/08/20 22:56 01/08/20 23:00 01/08/20 23:50 01/09/20 00:20 Range/Units White Blood Count 4.5 4.3-11.0 10^3/uL Red Blood Count 4.97 3.80-5.11 10^6/uL Hemoglobin 12.1 11.5-16.0 g/dL Hematocrit 37 35-52 % Mean Corpuscular Volume 75 L 80-99 fL Mean Corpuscular Hemoglobin 24 L 25-34 pg Mean Corpuscular Hemoglobin Concent 33 32-36 g/dL Red Cell Distribution Width 14.9 H 10.0-14.5 % Platelet Count 274 130-400 10^3/uL Mean Platelet Volume 11.5 9.0-12.2 fL Immature Granulocyte % (Auto) 0 % Neutrophils (%) (Auto) 50 42-75 % Lymphocytes (%) (Auto) 41 12-44 % Monocytes (%) (Auto) 7 0-12 % Eosinophils (%) (Auto) 2 0-10 % Basophils (%) (Auto) 0 0-10 % Neutrophils # (Auto) 2.3 1.8-7.8 10^3/uL Lymphocytes # (Auto) 1.8 1.0-4.0 10^3/uL Monocytes # (Auto) 0.3 0.0-1.0 10^3/uL Eosinophils # (Auto) 0.1 0.0-0.3 10^3/uL Basophils # (Auto) 0.0 0.0-0.1 10^3/uL Immature Granulocyte # (Auto) 0.0 0.0-0.1 10^3/uL Erythrocyte Sedimentation Rate 14 0-20 MM/HR Prothrombin Time 13.2 12.2-14.7 SEC INR Comment 1.0 0.8-1.4 Activated Partial Thromboplast Time 27 24-35 SEC B-Type Natriuretic Peptide < 10.0 <100.0 PG/ML Lactic Acid Level 0.90 0.50-2.00 MMOL/L Sodium Level 135 135-145 MMOL/L Potassium Level 3.8 3.6-5.0 MMOL/L Chloride Level 102 98-107 MMOL/L Carbon Dioxide Level 23 21-32 MMOL/L Anion Gap 10 5-14 MMOL/L Blood Urea Nitrogen 9 7-18 MG/DL Creatinine 0.78 0.60-1.30 MG/DL Estimat Glomerular Filtration Rate > 60 BUN/Creatinine Ratio 12 Glucose Level 185 H 70-105 MG/DL Calcium Level 8.4 L 8.5-10.1 MG/DL Corrected Calcium 8.6 8.5-10.1 MG/DL Magnesium Level 1.6 1.6-2.4 MG/DL Total Bilirubin 0.3 0.1-1.0 MG/DL Aspartate Amino Transf (AST/SGOT) 13 5-34 U/L Alanine Aminotransferase (ALT/SGPT) 10 0-55 U/L Alkaline Phosphatase 75 40-136 U/L Troponin I < 0.028 <0.028 NG/ML C-Reactive Protein High Sensitivity 0.45 0.00-0.50 MG/DL Total Protein 6.3 L 6.4-8.2 GM/DL Albumin 3.7 3.2-4.5 GM/DL Procalcitonin 0.01 <0.10 NG/ML Serum Test, Qualitative NEGATIVE NEGATIVE Urine Color YELLOW Urine Clarity SL CLOUDY Urine pH 6.5 5-9 Urine Specific [place] <=1.005 1.016-1.022 Urine Protein NEGATIVE NEGATIVE Urine Glucose (UA) NEGATIVE NEGATIVE Urine Ketones NEGATIVE NEGATIVE Urine Nitrite NEGATIVE NEGATIVE Urine Bilirubin NEGATIVE NEGATIVE Urine Urobilinogen 0.2 < = 1.0 MG/DL Urine Leukocyte Esterase NEGATIVE NEGATIVE Urine RBC (Auto) 1+ H NEGATIVE Urine RBC 2-5 H /HPF Urine WBC NONE /HPF Urine Squamous Epithelial Cells 5-10 /HPF Urine Crystals NONE /LPF Urine Bacteria NEGATIVE /HPF Urine Casts NONE /LPF Urine Mucus NEGATIVE /LPF Urine Culture Indicated NO My Orders Orders - ROM MCKEON DO Ed Iv/Invasive Line Start (01/08/20 22:50) Ekg Tracing (01/08/20 22:50) Monitor-Rhythm Ecg Trace Only (01/08/20 22:50) Ct Angio Chest W (01/08/20 22:50) BNP (01/08/20 22:50) Cbc With Automated Diff (01/08/20 22:50) Comprehensive Metabolic Panel (01/08/20 22:50) Hs C Reactive Protein (01/08/20 22:50) Hcg,Qualitative Serum (01/08/20 22:50) Lactic Acid Analyzer (01/08/20 22:50) Magnesium (01/08/20 22:50) Procalcitonin (Pct) (01/08/20 22:50) Protime With Inr (01/08/20 22:50) Partial Thromboplastin Time (01/08/20 22:50) Ua Culture If Indicated (01/08/20 22:50) Blood Culture (01/08/20 22:50) Erythrocyte Sedimentation Rate (01/08/20 22:50) Troponin I (01/08/20 22:50) Chest 1 View, Ap/Pa Only (01/09/20 00:10) Ondansetron Injection (Zofran Injectio (01/09/20 01:00) Ketorolac Injection (Toradol Injection) (01/09/20 01:00) Rx-Albuterol Inhaler (Rx-Ventolin Hfa) (01/09/20 00:55) Rx-Tramadol Hcl (Rx-Ultram) (01/09/20 00:55) Rx-Ondansetron Po (Rx-Zofran Po) (01/09/20 00:55) Medications Given in ED Current Medications Medications Dose Ordered Sig/David Route Start Time Stop Time Status Last Admin Dose Admin Ketorolac Tromethamine 30 mg ONCE ONCE IVP 01/09/20 01:00 01/09/20 01:01 DC 01/09/20 01:16 30 MG Ondansetron HCl 4 mg ONCE ONCE IVP 01/09/20 01:00 01/09/20 01:01 DC 01/09/20 01:17 4 MG Vital Signs/I&O 01/08/20 01/08/20 01/09/20 22:59 23:10 01:20 Temp 36.9 36.9 Pulse 68 56 Resp 19 18 B/P (MAP) 128/85 (99) 123/86 (99) Pulse Ox 99 O2 Delivery Room Air Room Air Room Air Capillary Refill : Less Than 3 Seconds Blood Pressure Mean: 99 Progress Note : Progress Note PT PLACED IN ISOLATION ROOM PPE WORN AT ALL TIMES NO COUGH OR DYSPNEA DURING ER STAY VITALS STABLE, AND O2 SATS REMAIN IN HIGH 90'S ON ROOM AIR NO FEVER SYMPTOMS IMPROVED AT DISMISSAL ECG Initial ECG Impression Date: Jan 08, 2020 Initial ECG Impression Time: 22:44 Initial ECG Rate: 62 Initial ECG Rhythm: Normal Sinus Initial ECG Comparisson: No Previous ECG Available Diagnostic Imaging Comments CXR--NO ACUTE PROCESS, PENDING RADIOLOGIST REVIEW CT CHEST ANGIOGRAM--NO ACUTE PROCESS, PER [facility] VIA FAX AT 0031 Reviewed: Reviewed by Me Departure Impression Primary Impression: Respiratory tract infection due to COVID-19 virus Additional Impression: Type 1 diabetes mellitus Disposition: HOME, SELF-CARE Condition: Stable Departure-Patient Inst. Referrals: MAURICIO DEVI MD Patient Instructions: Coronavirus Disease 2019 (COVID-19) (DC), Preventing the Spread of an Infectious Disease Add. Discharge Instructions: QUARANTINE FOR 2 WEEKS OR UNTIL CLEARED BY TYLENOL AND MOTRIN NEEDED FOR PAIN OR FEVER CONTINUE OVER THE COUNTER ROBITUSSIN FOR COUGH LOTS OF CLEAR LIQUIDS RETURN TO ER IF SYMPTOMS WORSEN All discharge instructions reviewed with patient and/or family. Voiced understanding. Scripts Fluticasone/Salmeterol (Advair 250-50 Diskus) 1 Each Blst.w.dev 1 EACH IH BID, #1 EA Prov: ROM MCKEON DO 01/09/20 Ondansetron (Ondansetron Odt) 4 Mg Tab.rapdis 4 MG PO Q4H for Nausea/Vomiting, #10 TAB Prov: ROM CMKEON DO 01/09/20 Tramadol HCl (Tramadol HCl) 50 Mg Tablet 50 MG PO Q6H PRN for PAIN for 3 Days, TAB 0 Refills Prov: ROM MCKEON DO 01/09/20 Albuterol Sulfate (PROAIR HFA) 1 Puff Puff 2 PUFF IH Q4H, #1 EA 1 PUFF = 90 MCG Prov: ROM MCKEON DO 01/09/20 ROM MCKEON DO Jan 09, 2020 00:12
[2020-01-09 00:13] LABS: ALBUMIN 3.7 GM/DL (3.2-4.5); CHLORIDE 102 MMOL/L (98-107); POTASSIUM 3.8 MMOL/L (3.6-5.0); SODIUM 135 MMOL/L (135-145)
[2020-01-09 00:14] LABS: CALCIUM 8.4 MG/DL (8.5-10.1)
[2020-01-09 00:15] LABS: GLUCOSE 185 MG/DL (70-105); TOTAL PROTEIN 6.3 GM/DL (6.4-8.2)
[2020-01-09 00:16] LABS: CARBON DIOXIDE 23 MMOL/L (21-32)
[2020-01-09 00:17] LABS: BILIRUBIN,TOTAL 0.3 MG/DL (0.1-1.0)
[2020-01-09 00:19] LABS: ALKALINE PHOSPHATASE 75 U/L (40-136); CREATININE SERUM 0.78 MG/DL (0.60-1.30); GFR ESTIMATED > 60
[2020-01-09 00:20] LABS: BUN/CREATININE RATIO 12
[2020-01-09 00:21] LABS: MAGNESIUM 1.6 MG/DL (1.6-2.4)
[2020-01-09 00:22] LABS: ALANINE AMINOTRANSFERASE 10 U/L (0-55)
[2020-01-09 00:33] LABS: BILIRUBIN,URINE NEGATIVE (NEGATIVE); CLARITY,URINE SL CLOUDY; COLOR,URINE YELLOW; GLUCOSE, URINE (UA) NEGATIVE (NEGATIVE); KETONES,URINE NEGATIVE (NEGATIVE); LEUKOCYTE ESTERASE ,URINE NEGATIVE (NEGATIVE); NITRITE,URINE NEGATIVE (NEGATIVE); PH,URINE 6.5 (5-9); PROTEIN,URINE NEGATIVE (NEGATIVE)
[2020-01-09 00:41] LABS: BACTERIA,URINE NEGATIVE /HPF
[2020-01-09] MEDS ORDERED: RX-ONDANSETRON 4 MG ODT (ZOFRAN) PPK #4 PO STA (00:55)
[2020-01-09] MEDS ORDERED: RX-TRAMADOL 50 MG (ULTRAM) TAB PPK#4 PO STA (00:55)
[2020-01-09] MEDS ORDERED: RX-ALBUTEROL INHALER (VENTOLIN HFA) 18 GM IH STA (00:55)
[2020-01-09] MEDS ORDERED: RT-ALBUINH IH (00:59)
[2020-01-09] MEDS ORDERED: TRM50T PO (00:59)
[2020-01-09] MEDS ORDERED: FLUT1DIS26 IH (00:59)
[2020-01-09] MEDS ORDERED: ONDA4TAB11 PO (00:59)
[2020-01-09] MEDS ORDERED: KETOROLAC 30 MG/ML VIAL IVP ONE (01:00)
[2020-01-09] MEDS ORDERED: ONDANSETRON 4 MG/2 ML (SDV) Z0FRAN IVP ONE (01:00)
[2020-01-09 01:20] VITALS: BP 123/86
[2020-01-09] MEDS ORDERED: IOHEXOL 350 MG/ML 100 ML (OMNIPAQUE 350) VIAL IV ONE (05:45)
[2020-01-09] MEDS ORDERED: NS 100 ML (IVPB) BAG IV ONE (05:45)
--- NOTE | 2020-01-09 07:04 | Diagnostic Imaging Report ---
Indication: Chest pain and Covid positive Single AP view of the chest is obtained. COMPARISON: No previous study is available for comparison at this time. FINDINGS: Heart size and pulmonary vasculature are within normal limits, and the lungs are clear, bilaterally. IMPRESSION: Unremarkable chest. Dictated by: Dictated on workstation # [id number]
--- NOTE | 2020-01-09 07:10 | Diagnostic Imaging Report ---
PROCEDURE: CT angiography of the chest with contrast. TECHNIQUE: Multiple contiguous axial images were obtained through the chest after uneventful bolus administration of intravenous contrast. 3D reconstructed CTA MIP acquisitions were also performed. Auto Exposure Controls were utilized during the CT exam to meet ALARA standards for radiation dose reduction. INDICATION: COVID positive with chest pain There is good opacification of pulmonary arteries without intraluminal filling defect. Thoracic aorta is unremarkable. The lungs are clear and well expanded. There is no significant pleural or pericardial fluid. No pathologic adenopathy is seen in the thorax. IMPRESSION: No CTA evidence of pulmonary embolism or other acute abnormality in the chest. Report was faxed to [facility]/RN Infection Control by [email or web address] at 7:08AM. Dictated by: Dictated on workstation # [id number]
== END 2020-01-09 01:21 | disposition home or self-care (01) ==
LOC: EDUNIT# 22:27 → ER 22:29
DX: U07.1 COVID-19 (principal); J98.8 Other specified respiratory disorders; E10.9 Type 1 diabetes mellitus without complications; F32.9 Major depressive disorder, single episode, unspecified; F41.9 Anxiety disorder, unspecified; Z88.1 Allergy status to other antibiotic agents
CPT/HCPCS: 36415; 71045; 71275; 80053; 81000; 83605; 83735; 83880; 84145; 84484; 84703; 85025; 85610; 85652; 85730; 86141; 87040; 93005; 93041

== ENCOUNTER 2020-06-16 16:04 | Emergency (ER) | payer OTHER ==
[~2020-06-16] VITALS: Ht 167.7 cm; Wt 74.8 kg
[~2020-06-16 16:04] MED LIST changes: +FLUT1DIS26 IH; +MIRT-96 PO; -MIRT15TA PO; +ONDA4TAB11 PO; +RT-ALBUINH IH; +TRM50T PO
[2020-06-16 17:09] LABS: BILIRUBIN,URINE NEGATIVE (NEGATIVE); CLARITY,URINE CLEAR; COLOR,URINE YELLOW; GLUCOSE, URINE (UA) NEGATIVE (NEGATIVE); KETONES,URINE NEGATIVE (NEGATIVE); LEUKOCYTE ESTERASE ,URINE NEGATIVE (NEGATIVE); NITRITE,URINE NEGATIVE (NEGATIVE); PROTEIN,URINE NEGATIVE (NEGATIVE)
[2020-06-16 17:31] LABS: BASOPHILS % (AUTO) 0 % (0-10); EOSINOPHILS # (AUTO) 0.1 10^3/uL (0.0-0.3); EOSINOPHILS % (AUTO) 2 % (0-10); HEMATOCRIT 37 % (35-52); HEMOGLOBIN 11.6 g/dL (11.5-16.0); LYMPHOCYTES # (AUTO) 2.1 10^3/uL (1.0-4.0); LYMPHOCYTES % (AUTO) 33 % (12-44); MEAN CORPUSCULAR HEMOGLOBIN 24 pg (25-34); MEAN CORPUSCULAR HGB CONC 32 g/dL (32-36); MEAN CORPUSCULAR VOLUME 75 fL (80-99); MEAN PLATELET VOLUME 10.5 fL (9.0-12.2); MONOCYTES # (AUTO) 0.4 10^3/uL (0.0-1.0); MONOCYTES % (AUTO) 6 % (0-12); NEUTROPHILS # (AUTO) 3.8 10^3/uL (1.8-7.8); NEUTROPHILS % (AUTO) 59 % (42-75); PLATELET COUNT 243 10^3/uL (130-400); WHITE BLOOD COUNT 6.5 10^3/uL (4.3-11.0)
[2020-06-16 17:32] LABS: BACTERIA,URINE NEGATIVE /HPF
[2020-06-16 17:33] LABS: SQUAMOUS EPITHELIAL CELL,UR 0-2 /HPF
[2020-06-16 17:34] LABS: AMPHETAMINE SCREEN, URINE NEGATIVE (NEGATIVE); BARBITURATE SCREEN URINE NEGATIVE (NEGATIVE); BENZODIAZEPINES SCREEN URINE POSITIVE (NEGATIVE); CANNABINOID SCREEN, URINE POSITIVE (NEGATIVE); COCAINE SCREEN URINE NEGATIVE (NEGATIVE); METHADONE STAT NEGATIVE (NEGATIVE); METHAMPHETAMINE SCREEN URINE S NEGATIVE (NEGATIVE); OPIATE SCREEN URINE NEGATIVE (NEGATIVE); OXYCODONE STAT NEGATIVE (NEGATIVE); PROPOXYPHENE STAT NEGATIVE (NEGATIVE); TRICYCLIC ANTIDEPRESSANTS SCRE NEGATIVE (NEGATIVE)
[2020-06-16 17:43] LABS: ALBUMIN 4.2 GM/DL (3.2-4.5); CHLORIDE 105 MMOL/L (98-107); POTASSIUM 3.6 MMOL/L (3.6-5.0); SODIUM 139 MMOL/L (135-145)
[2020-06-16 17:45] LABS: CALCIUM 9.1 MG/DL (8.5-10.1)
[2020-06-16 17:46] LABS: GLUCOSE 206 MG/DL (70-105); TOTAL PROTEIN 7.4 GM/DL (6.4-8.2)
[2020-06-16 17:47] LABS: CARBON DIOXIDE 24 MMOL/L (21-32)
[2020-06-16 17:48] LABS: BILIRUBIN,TOTAL 0.2 MG/DL (0.1-1.0)
[2020-06-16 17:50] LABS: ALKALINE PHOSPHATASE 87 U/L (40-136); CREATININE SERUM 0.77 MG/DL (0.60-1.30); GFR ESTIMATED > 60
[2020-06-16 17:51] LABS: BUN/CREATININE RATIO 8
[2020-06-16 17:52] LABS: SALICYLATE < 5.0 MG/DL (5.0-20.0)
[2020-06-16 17:53] LABS: ALANINE AMINOTRANSFERASE 14 U/L (0-55)
[2020-06-16 17:57] LABS: ACETAMINOPHEN < 10 UG/ML (10-30)
[2020-06-16 18:12] LABS: TSH (THYROID ANALYZER) 1.06 UIU/ML (0.35-4.94)
--- NOTE | 2020-06-16 18:49 | ED Psychosocial ---
General Chief Complaint: Psych/Social Disorder Stated Complaint: PSYCH EVAL Nursing Triage Note: Pt ambulatory to ED with . Pt is tearful and reports recently being diagnosed with bipolar. Pt got into an argument with brother on Monday and went and checked into a hotel without telling anyone. Pt reports sitting in hotel for thinking of way to commit suicide for three hours. Pt denies any past attempt. Pt reports still feeling depressed but does not feel suicidal at this time. Pt reports being actively involved in therapy and had a zoom call with psychiatrist today. Pt reports psychiatrist sent pt to ED today for evaluation and medication. Pt reports starting Seroquel last night. Pt reports having a plan of overdose on insulin, but denies wishing to act on plan at this time. Pt does not want in pt treatment. Source: patient Exam Limitations: no limitations History of Present Illness Date Seen by Provider: Jun 16, 2020 Time Seen by Provider: 16:59 Initial Comments This 29-year-old young lady presents to the emergency room at the recommendation of her psychiatrist. She was reportedly recently diagnosed with bipolar disorder. She developed a safety plan with her therapist yesterday but was then referred to the ER after talking to her psychiatrist today. She was recently started on Seroquel for the bipolar disorder. She took her first dose last night. She actually did feel better and slept well last night. She feels mentally healthier today than she did yesterday. She also takes Xanax for anxiety. On Monday she had her first therapy appointment in [place] where her family lives. That day she got into an argument with her brother. The argument was fairly intense and she decided to stay in a hotel that night. She turned off her phone so no one could contact her. She then contemplated ways that she might be able to commit suicide. She then went home to her very late that night. She now states her depression seems improved. She does not feel suicidal today but she also is concerned that she may have another episode like the one she had in [place]. She worries what will happen if she has another trigger. She generally feels overwhelmed and states her mood is erratic. She has been treated for behavioral health disorders since age 15. She has not required inpatient admission. Past medical history includes PTSD, bipolar Polar disorder, and MDD. Allergies and Home Medications Allergies Coded Allergies: azithromycin (Verified Allergy, Severe, 08/23/17) Home Medications Albuterol Sulfate 1 Puff Puff, 2 PUFF IH Q4H 1 PUFF = 90 MCG Prescribed by: ROM MCKEON on 01/09/2058 Cephalexin 500 Mg Tablet, 500 MG PO BID Prescribed by: JESS DUBON on 08/23/17 1540 Fluticasone/Salmeterol 1 Each Blst.w.dev, 1 EACH IH BID Prescribed by: ROM MCKEON on 01/09/2058 Mirtazapine 15 Mg Tablet, 15 MG PO HS, (Reported) Ondansetron 4 Mg Tab.rapdis, 4 MG SL Q4H PRN for NAUSEA/VOMITING-1ST LINE, (Reported) Ondansetron 4 Mg Tab.rapdis, 4 MG PO Q4H Prescribed by: ROM MCKEON on 01/09/2058 Tramadol HCl 50 Mg Tablet, 50 MG PO Q6H PRN for PAIN Prescribed by: ROM MCKEON on 01/09/2058 Patient Home Medication List Home Medication List Reviewed: Yes Review of Systems Constitutional: no symptoms reported EENTM: no symptoms reported Respiratory: no symptoms reported Cardiovascular: no symptoms reported Gastrointestinal: no symptoms reported Genitourinary: no symptoms reported : No Musculoskeletal: no symptoms reported Skin: no symptoms reported Psychiatric/Neurological: See HPI Past Oxltfov-Sweelj-Mztdic Hx Patient Social History Alcohol Use: Denies Use Smoking Status: Never a Smoker 2nd Hand Smoke Exposure: No Recent Infectious Disease Expo: No Recent Hopitalizations: No Seasonal Allergies Seasonal Allergies: Yes Past Medical History Surgeries: Yes (PLEURAL EFFUSION-LEFT CHEST TUBE WITH PNEUMONIA CHILD;EGD/C- SCOPE) Respiratory: Yes (PNEUMONIA WITH LEFT CHEST TUBE CHILD;OCCASIONAL RESP IN FECTION) Cardiac: No Neurological: No Reproductive Disorders: Yes (PT AND WITH INFERTILITY) Female Reproductive Disorders: Ovarian Cyst Genitourinary: No Gastrointestinal: No Musculoskeletal: No Endocrine: Yes (TYPE 1 DIABETES) Diabetes, Insulin dep HEENT: No Cancer: No Psychosocial: Yes Anxiety, Bipolar, Depression Integumentary: No Blood Disorders: No Family Medical History Diabetes Physical Exam Vital Signs - First Documented 06/16/20 16:30 Temp 36.9 Pulse 99 Resp 20 B/P (MAP) 111/59 (76) Pulse Ox 94 O2 Delivery Room Air Capillary Refill : Less Than 3 Seconds Height, Weight, BMI Height: 5'6.00" Weight: 155lbs. oz. [id number]; 26.00 BMI Method:Stated General Appearance: WD/WN, mild distress (Tearful) HEENT: PERRL/EOMI, normal ENT inspection, pharynx normal Neck: normal inspection Respiratory: lungs clear, normal breath sounds, no respiratory distress Cardiovascular: regular rate, rhythm, no edema, no murmur Gastrointestinal: non tender, soft Extremities: normal inspection, no pedal edema Neurologic/Psychiatric: public relations studies director II-XII nml as tested, no motor/sensory deficits, alert, oriented x 3, other (Patient is somewhat tearful. Mood overall improved since 2 days ago.) Appearance/Memory: appropriate appearance, appropriate insight Behavior/Eye Contact: cooperative, good eye contact Thoughts/Hallucinations: other (Denies suicidal ideation today.) Skin: normal color, warm/dry Progress/Results/Core Measures Results/Orders Lab Results Laboratory Tests Test 06/16/20 17:00 06/16/20 17:17 Range/Units Urine Color YELLOW Urine Clarity CLEAR Urine pH 6.0 5-9 Urine Specific [place] 1.010 L 1.016-1.022 Urine Protein NEGATIVE NEGATIVE Urine Glucose (UA) NEGATIVE NEGATIVE Urine Ketones NEGATIVE NEGATIVE Urine Nitrite NEGATIVE NEGATIVE Urine Bilirubin NEGATIVE NEGATIVE Urine Urobilinogen 0.2 < = 1.0 MG/DL Urine Leukocyte Esterase NEGATIVE NEGATIVE Urine RBC (Auto) NEGATIVE NEGATIVE Urine RBC NONE /HPF Urine WBC NONE /HPF Urine Squamous Epithelial Cells 0-2 /HPF Urine Crystals NONE /LPF Urine Bacteria NEGATIVE /HPF Urine Casts NONE /LPF Urine Mucus NEGATIVE /LPF Urine Culture Indicated NO Urine Opiates Screen NEGATIVE NEGATIVE Urine Oxycodone Screen NEGATIVE NEGATIVE Urine Methadone Screen NEGATIVE NEGATIVE Urine Propoxyphene Screen NEGATIVE NEGATIVE Urine Barbiturates Screen NEGATIVE NEGATIVE Ur Tricyclic Antidepressants Screen NEGATIVE NEGATIVE Urine Phencyclidine Screen NEGATIVE NEGATIVE Urine Amphetamines Screen NEGATIVE NEGATIVE Urine Methamphetamines Screen NEGATIVE NEGATIVE Urine Benzodiazepines Screen POSITIVE H NEGATIVE Urine Cocaine Screen NEGATIVE NEGATIVE Urine Cannabinoids Screen POSITIVE H NEGATIVE White Blood Count 6.5 4.3-11.0 10^3/uL Red Blood Count 4.88 3.80-5.11 10^6/uL Hemoglobin 11.6 11.5-16.0 g/dL Hematocrit 37 35-52 % Mean Corpuscular Volume 75 L 80-99 fL Mean Corpuscular Hemoglobin 24 L 25-34 pg Mean Corpuscular Hemoglobin Concent 32 32-36 g/dL Red Cell Distribution Width 16.8 H 10.0-14.5 % Platelet Count 243 130-400 10^3/uL Mean Platelet Volume 10.5 9.0-12.2 fL Immature Granulocyte % (Auto) 0 % Neutrophils (%) (Auto) 59 42-75 % Lymphocytes (%) (Auto) 33 12-44 % Monocytes (%) (Auto) 6 0-12 % Eosinophils (%) (Auto) 2 0-10 % Basophils (%) (Auto) 0 0-10 % Neutrophils # (Auto) 3.8 1.8-7.8 10^3/uL Lymphocytes # (Auto) 2.1 1.0-4.0 10^3/uL Monocytes # (Auto) 0.4 0.0-1.0 10^3/uL Eosinophils # (Auto) 0.1 0.0-0.3 10^3/uL Basophils # (Auto) 0.0 0.0-0.1 10^3/uL Immature Granulocyte # (Auto) 0.0 0.0-0.1 10^3/uL Sodium Level 139 135-145 MMOL/L Potassium Level 3.6 3.6-5.0 MMOL/L Chloride Level 105 98-107 MMOL/L Carbon Dioxide Level 24 21-32 MMOL/L Anion Gap 10 5-14 MMOL/L Blood Urea Nitrogen 6 L 7-18 MG/DL Creatinine 0.77 0.60-1.30 MG/DL Estimat Glomerular Filtration Rate > 60 BUN/Creatinine Ratio 8 Glucose Level 206 H 70-105 MG/DL Calcium Level 9.1 8.5-10.1 MG/DL Corrected Calcium 8.9 8.5-10.1 MG/DL Total Bilirubin 0.2 0.1-1.0 MG/DL Aspartate Amino Transf (AST/SGOT) 14 5-34 U/L Alanine Aminotransferase (ALT/SGPT) 14 0-55 U/L Alkaline Phosphatase 87 40-136 U/L Total Protein 7.4 6.4-8.2 GM/DL Albumin 4.2 3.2-4.5 GM/DL TSH [place] Testing 1.06 0.35-4.94 UIU/ML Serum Test, Qualitative NEGATIVE NEGATIVE Salicylates Level < 5.0 L 5.0-20.0 MG/DL Acetaminophen Level < 10 L 10-30 UG/ML Serum Alcohol < 10 <10 MG/DL My Orders Orders - ISAC LYNN MD Acetaminophen (06/16/20 16:59) Alcohol (06/16/20 16:59) Cbc With Automated Diff (06/16/20 16:59) Comprehensive Metabolic Panel (06/16/20 16:59) Drug Screen Stat (Urine) (06/16/20 16:59) Hcg,Qualitative Serum (06/16/20 16:59) Salicylate (06/16/20 16:59) Thyroid Analyzer (06/16/20 16:59) Ua Culture If Indicated (06/16/20 16:59) Ekg Tracing (06/16/20 16:34) Vital Signs/I&O Blood Pressure Mean: 76 Progress Progress Note : Progress Note Medical evaluation was unremarkable. I had a very long discussion with the patient and her about options. We discussed inpatient treatment for stabilizing her mood and secured monitoring while medications are adjusted. Al ternatively we discussed continuing intensive outpatient therapy with frequent monitoring by her and continued safety plan. Patient elects the latter. She verbally contracts for safety and commits to getting immediate help if suicidal thoughts return. She seems to be experiencing overall improvement over the last 48 hours. Initial ECG Impression Date: Jun 16, 2020 Initial ECG Impression Time: 16:34 Initial ECG Rate: 71 Initial ECG Rhythm: Normal Sinus Initial ECG Impression: Normal Comment Normal sinus rhythm with no ST elevation or depression. No abnormal intervals or axis deviation. Departure Impression Primary Impression: Bipolar disorder Qualified Codes: F31.30 - Bipolar disorder, current episode depressed, mild or moderate severity, unspecified Additional Impression: Suicidal ideation Disposition: 01 HOME, SELF-CARE Condition: Improved Departure-Patient Inst. Decision time for Depature: 18:48 Referrals: MAURICIO DEVI MD (PCP/Family) Primary Care Physician Patient Instructions: Bipolar Disorder Add. Discharge Instructions: Continue taking Seroquel at bedtime as prescribed. Follow-up with your therapist and psychiatrist as soon as possible. If suicidal thoughts or intentions return, please call in the behavioral health helpline or return to the emergency room immediately. Call 911 if necessary. Please call with questions or concerns. All discharge instructions reviewed with patient and/or family. Voiced understanding. ISAC LYNN MD Jun 16, 2020 18:49
[2020-06-16 19:02] VITALS: BP 111/59
== END 2020-06-16 19:02 | disposition home or self-care (01) ==
LOC: EDUNIT# 16:04 → ER 16:07
DX: F31.9 Bipolar disorder, unspecified (principal); R45.851 Suicidal ideations; F41.9 Anxiety disorder, unspecified; Z88.1 Allergy status to other antibiotic agents; Z83.3 Family history of diabetes mellitus
CPT/HCPCS: 80053; 80306; 81000; 84443; 84703; 85025; G0480 ×3; 36415; 80320; 80329; 93005

== ENCOUNTER → 2020-08-14 | Outpatient (CLI) | payer OTHER ==
--- NOTE | 2020-08-14 11:17 | Diagnostic Imaging Report ---
Lumbar spine INDICATION: Low back pain AP, lateral and spot lateral views were obtained. There are no prior studies available for comparison. The spot lateral view suggest that there is slight retrolisthesis of L5 with respect to S1. There is also mild narrowing of the disc space at this level. The alignment of the other vertebral bodies is within normal limits and the other intervertebral spaces are fairly well-maintained. There is no fracture or acute bony abnormality identified. There is no sign of a paraspinal mass. The sacral iliac joints are symmetrical and within normal limits. IMPRESSION: 1. There is no evidence for an acute bony abnormality. 2. There are mild degenerative disc and bony changes at the L5-S1 level. 3. If there is clinical concern regarding spinal stenosis or nerve root encroachment, then MRI would be recommended for further evaluation. Dictated by: Dictated on workstation # [id number]
== END ==
LOC: RAD 10:00
PROVIDERS: ATTEND Nurse Practitioner Family
DX: M51.37 Other intervertebral disc degeneration, lumbosacral region (principal)
CPT/HCPCS: 72100

== ENCOUNTER → 2020-08-20 | Outpatient (CLI) | payer OTHER ==
--- NOTE | 2020-08-20 15:41 | Diagnostic Imaging Report ---
EXAMINATION: MRI of the lumbar spine without contrast from 08/20/2020. TECHNIQUE: Multiplanar, multisequence MRI of the lumbar spine was performed without contrast. INDICATION: Low back pain with heavy lifting in mid July. FINDINGS: There is normal height and alignment of the vertebral bodies. No fractures or subluxations. Tip of the conus is unremarkable in appearance and location. The L1-L2 and L2-L3 levels appear unremarkable. L3-L4: There is bilateral facet hypertrophy. No central stenosis. Minimal bilateral neuroforaminal narrowing is noted. L4-L5: There is bilateral facet and ligamentum flavum hypertrophy with disc desiccation and a left paracentral broad-based bulging disc. This contains an annular tear. Findings cause mild central narrowing. There is mild bilateral neuroforaminal stenosis. L5-S1: There is intervertebral disc space narrowing, disc desiccation, and a right paracentral broad-based bulging disc containing an annular tear. Bilateral facet hypertrophy is noted. There is mild central and right lateral recess narrowing. There is moderate bilateral neuroforaminal stenosis. Visualized intra-abdominal structures are unremarkable. IMPRESSION: 1. Degenerative findings, predominantly at L4-L5 and L5-S1 as described. Dictated by: Dictated on workstation # [id number]
== END ==
LOC: RAD 13:15
PROVIDERS: ATTEND Nurse Practitioner Family
DX: M48.07 Spinal stenosis, lumbosacral region (principal); M47.817 Spondylosis without myelopathy or radiculopathy, lumbosacral region; M51.37 Other intervertebral disc degeneration, lumbosacral region; M51.27 Other intervertebral disc displacement, lumbosacral region
CPT/HCPCS: 72148

== ENCOUNTER 2020-10-19 20:06 | Emergency (ER) | payer OTHER ==
[~2020-10-19] VITALS: Ht 167 cm; Wt 74.8 kg
--- NOTE | 2020-10-19 20:24 | ED General ---
General Chief Complaint: Glucose Problems Stated Complaint: VOMITING / WEAK / TYPE 1 DIABETIC Source of Information: Patient Exam Limitations: No Limitations History of Present Illness Date Seen by Provider: Oct 19, 2020 Time Seen by Provider: 20:23 Initial Comments To ER with reports of nausea vomiting upset stomach general weakness and fatigue. She is a type I diabetic. She uses an insulin pen. She has had both Covid vaccines. She denies cough fevers chills shortness of breath. She has had vomiting and general weakness and has noticed ketones in her urine. Timing/Duration: 1-2 Days Severity: Moderate Associated Systoms: Denies Symptoms Allergies and Home Medications Allergies Coded Allergies: azithromycin (Verified Allergy, Severe, 08/23/17) Home Medications Albuterol Sulfate 1 Puff Puff, 2 PUFF IH Q4H 1 PUFF = 90 MCG Prescribed by: ROM MCKEON on 01/09/2058 Cephalexin 500 Mg Tablet, 500 MG PO BID Prescribed by: JESS DUBON on 08/23/17 1540 Fluticasone/Salmeterol 1 Each Blst.w.dev, 1 EACH IH BID Prescribed by: ROM MCKEON on 01/09/2058 Mirtazapine 15 Mg Tablet, 15 MG PO HS, (Reported) Ondansetron 4 Mg Tab.rapdis, 4 MG SL Q4H PRN for NAUSEA/VOMITING-1ST LINE, (Reported) Ondansetron 4 Mg Tab.rapdis, 4 MG PO Q4H Prescribed by: ROM MCKEON on 01/09/2058 Tramadol HCl 50 Mg Tablet, 50 MG PO Q6H PRN for PAIN Prescribed by: ROM MCKEON on 01/09/2058 Patient Home Medication List Home Medication List Reviewed: Yes Review of Systems Review of Systems Constitutional: see HPI, malaise, weakness EENTM: see HPI Respiratory: no symptoms reported Cardiovascular: no symptoms reported Genitourinary: no symptoms reported Musculoskeletal: no symptoms reported Skin: no symptoms reported Psychiatric/Neurological: See HPI, Headache Hematologic/Lymphatic: No Symptoms Reported Past Wessuxb-Vmhfpg-Gammxv Hx Seasonal Allergies Seasonal Allergies: Yes Past Medical History Surgeries: Yes (PLEURAL EFFUSION-LEFT CHEST TUBE WITH PNEUMONIA CHILD;EGD/C- SCOPE) Respiratory: Yes (PNEUMONIA WITH LEFT CHEST TUBE CHILD;OCCASIONAL RESP INFECTION) Cardiac: No Neurological: No Reproductive Disorders: Yes (PT AND WITH INFERTILITY) Female Reproductive Disorders: Ovarian Cyst Genitourinary: No Gastrointestinal: No Musculoskeletal: No Endocrine: Yes (TYPE 1 DIABETES) Diabetes, Insulin dep HEENT: No Cancer: No Psychosocial: Yes Anxiety, Bipolar, Depression Integumentary: No Blood Disorders: No Family Medical History Diabetes Physical Exam Vital Signs Vital Signs - First Documented 10/19/20 20:14 Temp 36.7 Pulse 110 Resp 20 B/P (MAP) 136/105 (115) Pulse Ox 98 O2 Delivery Room Air Capillary Refill : Height, Weight, BMI Height: 5'6.00" Weight: 155lbs. oz. [id number]; 26.00 BMI Method:Stated General Appearance: No Apparent Distress, WD/WN, Other (Alert no distress heart rate 95, GCS 15.) Eyes: Bilateral Eye Normal Inspection, Bilateral Eye PERRL, Bilateral Eye EOMI HEENT: PERRL/EOMI, TMs Normal Neck: Full Range of Motion, Normal Inspection Respiratory: No Accessory Muscle Use, No Respiratory Distress Cardiovascular: Regular Rate, Rhythm, Normal Peripheral Pulses Gastrointestinal: Normal Bowel Sounds, Non Tender, Soft Extremity: Normal Capillary Refill, Normal Inspection Neurologic/Psychiatric: Alert, Oriented x3 Progress/Results/Core Measures Suspected Sepsis SIRS Temperature: Pulse: Respiratory Rate: Laboratory Tests 10/19/20 20:15: White Blood Count 14.9H Blood Pressure / Mean: Laboratory Tests 10/19/20 20:15: Creatinine 1.28, Platelet Count 368, Total Bilirubin 0.6 Results/Orders Lab Results Laboratory Tests Test 10/19/20 20:15 10/19/20 20:16 10/19/20 21:20 Range/Units White Blood Count 14.9 H 4.3-11.0 10^3/uL Red Blood Count 5.69 H 3.80-5.11 10^6/uL Hemoglobin 15.0 11.5-16.0 g/dL Hematocrit 44 35-52 % Mean Corpuscular Volume 78 L 80-99 fL Mean Corpuscular Hemoglobin 26 25-34 pg Mean Corpuscular Hemoglobin Concent 34 32-36 g/dL Red Cell Distribution Width 14.7 H 10.0-14.5 % Platelet Count 368 130-400 10^3/uL Mean Platelet Volume 9.9 9.0-12.2 fL Immature Granulocyte % (Auto) 1 % Neutrophils (%) (Auto) 73 42-75 % Lymphocytes (%) (Auto) 21 12-44 % Monocytes (%) (Auto) 6 0-12 % Eosinophils (%) (Auto) 0 0-10 % Basophils (%) (Auto) 0 0-10 % Neutrophils # (Auto) 10.8 H 1.8-7.8 10^3/uL Lymphocytes # (Auto) 3.1 1.0-4.0 10^3/uL Monocytes # (Auto) 0.8 0.0-1.0 10^3/uL Eosinophils # (Auto) 0.0 0.0-0.3 10^3/uL Basophils # (Auto) 0.1 0.0-0.1 10^3/uL Immature Granulocyte # (Auto) 0.1 0.0-0.1 10^3/uL Sodium Level 136 135-145 MMOL/L Potassium Level 3.6 3.6-5.0 MMOL/L Chloride Level 103 98-107 MMOL/L Carbon Dioxide Level 19 L 21-32 MMOL/L Anion Gap 14 5-14 MMOL/L Blood Urea Nitrogen 10 7-18 MG/DL Creatinine 1.28 0.60-1.30 MG/DL Estimat Glomerular Filtration Rate 49 BUN/Creatinine Ratio 8 Glucose Level 241 H 70-105 MG/DL Calcium Level 10.0 8.5-10.1 MG/DL Corrected Calcium 8.5-10.1 MG/DL Total Bilirubin 0.6 0.1-1.0 MG/DL Aspartate Amino Transf (AST/SGOT) 15 5-34 U/L Alanine Aminotransferase (ALT/SGPT) 14 0-55 U/L Alkaline Phosphatase 132 40-136 U/L C-Reactive Protein High Sensitivity 1.11 H 0.00-0.50 MG/DL Total Protein 8.3 H 6.4-8.2 GM/DL Albumin 4.7 H 3.2-4.5 GM/DL Beta-Hydroxybutyrate (Chem panel) 1.22 H 0.00-0.27 MMOL/L Serum Test, Qualitative NEGATIVE NEGATIVE Glucometer 247 H 70-110 MG/DL Urine Color LORI H Urine Clarity CLEAR Urine pH 6.5 5-9 Urine Specific [place] 1.020 1.016-1.022 Urine Protein 1+ H NEGATIVE Urine Glucose (UA) NEGATIVE NEGATIVE Urine Ketones 3+ H NEGATIVE Urine Nitrite NEGATIVE NEGATIVE Urine Bilirubin NEGATIVE NEGATIVE Urine Urobilinogen 1.0 < = 1.0 MG/DL Urine Leukocyte Esterase NEGATIVE NEGATIVE Urine RBC (Auto) NEGATIVE NEGATIVE Urine RBC 0-2 /HPF Urine WBC 2-5 /HPF Urine Squamous Epithelial Cells 5-10 /HPF Urine Crystals NONE /LPF Urine Bacteria FEW H /HPF Urine Casts NONE /LPF Urine Mucus LARGE H /LPF Urine Culture Indicated YES My Orders Orders - FAVIO JORDAN CORRUGATED FASTENER DRIVER Beta Hydroxybutyrate (10/19/20 20:22) Hcg,Qualitative Serum (10/19/20 20:22) Lactated Ringers (Lr 1000 Ml Iv Solution (10/19/20 20:30) Ondansetron Injection (Zofran Injectio (10/19/20 20:30) Lactated Ringers (Lr 1000 Ml Iv Solution (10/19/20 21:15) Medications Given in ED Current Medications Medications Dose Ordered Sig/David Route Start Time Stop Time Status Last Admin Dose Admin Ondansetron HCl 8 mg ONCE ONCE IVP 10/19/20 20:30 10/19/20 20:31 DC 10/19/20 20:31 8 MG Vital Signs/I&O 10/19/20 20:14 Temp 36.7 Pulse 110 Resp 20 B/P (MAP) 136/105 (115) Pulse Ox 98 O2 Delivery Room Air Capillary Refill : Point of Care Testing Finger Stick Blood Glucose: 247 Departure Communication (Admissions) [id number]-she is feeling quite a bit better now without nausea. She has had 2 L of LR and is able to produce urine for us. She will follow up with Dr. Bullock later this week. She reports just some general diffuse aches and pains nothing specific to any one location. Impression Primary Impression: Dehydration Disposition: 01 HOME, SELF-CARE Condition: Stable Departure-Patient Inst. Decision time for Depature: 22:06 Referrals: MAURICIO BULLOCK MD (PCP/Family) Primary Care Physician Patient Instructions: Dehydration, Adult (DC) Add. Discharge Instructions: 1. Return to ER for any concerns. Follow-up with your doctor next week. All discharge instructions reviewed with patient and/or family. Voiced understanding. Work/School Note: Work Release Form Date Seen in the Emergency Department: Oct 19, 2020 Return to Work: Oct 21, 2020 Copy Copies To 1: MAURICIO BULLOCK MD, PETER J APRN Oct 19, 2020 20:24
[2020-10-19] MEDS ORDERED: ONDANSETRON 4 MG/2 ML (SDV) Z0FRAN IVP ONE (20:30)
[2020-10-19] MEDS: LACTATED RINGERS 1,000 ML IV SCH ×2 (20:31→21:17)
[2020-10-19 20:40] LABS: BASOPHILS # (AUTO) 0.1 10^3/uL (0.0-0.1); BASOPHILS % (AUTO) 0 % (0-10); EOSINOPHILS % (AUTO) 0 % (0-10); HEMATOCRIT 44 % (35-52); LYMPHOCYTES # (AUTO) 3.1 10^3/uL (1.0-4.0); LYMPHOCYTES % (AUTO) 21 % (12-44); MEAN CORPUSCULAR HEMOGLOBIN 26 pg (25-34); MEAN CORPUSCULAR HGB CONC 34 g/dL (32-36); MEAN CORPUSCULAR VOLUME 78 fL (80-99); MEAN PLATELET VOLUME 9.9 fL (9.0-12.2); MONOCYTES # (AUTO) 0.8 10^3/uL (0.0-1.0); MONOCYTES % (AUTO) 6 % (0-12); NEUTROPHILS # (AUTO) 10.8 10^3/uL (1.8-7.8); NEUTROPHILS % (AUTO) 73 % (42-75); PLATELET COUNT 368 10^3/uL (130-400); WHITE BLOOD COUNT 14.9 10^3/uL (4.3-11.0)
[2020-10-19] MEDS ORDERED: LACTATED RINGERS 1,000 ML IV SCH (21:15)
[2020-10-19 21:20] LABS: ALANINE AMINOTRANSFERASE 14 U/L (0-55); ALBUMIN 4.7 GM/DL (3.2-4.5); ALKALINE PHOSPHATASE 132 U/L (40-136); BILIRUBIN,TOTAL 0.6 MG/DL (0.1-1.0); BUN/CREATININE RATIO 8; CARBON DIOXIDE 19 MMOL/L (21-32); CHLORIDE 103 MMOL/L (98-107); CREATININE SERUM 1.28 MG/DL (0.60-1.30); GFR ESTIMATED 49; GLUCOSE 241 MG/DL (70-105); POTASSIUM 3.6 MMOL/L (3.6-5.0); SODIUM 136 MMOL/L (135-145); TOTAL PROTEIN 8.3 GM/DL (6.4-8.2)
[2020-10-19 21:27] LABS: CLARITY,URINE CLEAR; COLOR,URINE AMBER; GLUCOSE, URINE (UA) NEGATIVE (NEGATIVE); KETONES,URINE 3+ (NEGATIVE); LEUKOCYTE ESTERASE ,URINE NEGATIVE (NEGATIVE); NITRITE,URINE NEGATIVE (NEGATIVE); PH,URINE 6.5 (5-9); PROTEIN,URINE 1+ (NEGATIVE)
[2020-10-19 22:12] LABS: BACTERIA,URINE FEW /HPF; BILIRUBIN,URINE NEGATIVE (NEGATIVE); RBC,URINE 0-2 /HPF
[2020-10-19 22:47] LABS: LYMPHOCYTES % (MANUAL) 18 %; MONOCYTES % (MANUAL) 5 %; NEUTROPHILS % (MANUAL) 77 %; RBC MORPH NORMAL
[2020-10-19 22:59] VITALS: BP 136/105
== END 2020-10-19 22:59 | disposition home or self-care (01) ==
LOC: EDUNIT# 20:06 → ER 20:08
DX: E86.0 Dehydration (principal); E10.9 Type 1 diabetes mellitus without complications; F41.9 Anxiety disorder, unspecified; F32.9 Major depressive disorder, single episode, unspecified; Z79.899 Other long term (current) drug therapy
CPT/HCPCS: 36415; 80053; 81000; 82010; 82947; 84703; 85007; 85027; 86141; 87088

== ENCOUNTER 2020-10-22 17:42 | Emergency (ER) | payer OTHER ==
[~2020-10-22] VITALS: Ht 167.7 cm; Wt 65.0 kg
[2020-10-22] MEDS ORDERED: ONDANSETRON 4 MG/2 ML (SDV) Z0FRAN IVP ONE (18:00)
[2020-10-22] MEDS ORDERED: LORazepam INJ 2 MG/ML (ATIVAN) VIAL IVP PRN ×2 (18:00→19:00)
--- NOTE | 2020-10-22 18:05 | ED General ---
General Stated Complaint: NAUSEA, ANXIOUS Source of Information: Patient Exam Limitations: No Limitations History of Present Illness Date Seen by Provider: Oct 22, 2020 Time Seen by Provider: 18:05 Initial Comments To ER with c/o anxiety, mood swings, nausea, "feeling like crap". She states the symptoms have been ongoing for about a week. She is also an insulin- dependent diabetic. In fact I saw her here at the beginning of this week for the symptoms which were believed to be related to possibly DKA. Her labs were nonrevealing and she was discharged home. She states that she went home and "actually started taking her insulin" and felt a little better briefly. She now informs me today that she actually quit all of her bipolar medications which includes Effexor 75 mg, Seroquel 200 mg, and Lamictal 100 mg 1.5 weeks ago. This is likely the cause of her symptoms. She states that she stopped them because they were not helping and she does not want to be on any medications. She has no thoughts of harming herself she just feels very anxious. She is not interested in going inpatient for mental health help. Primary care is Dr. Bullock, she saw therapy from [facility] and psychiatry from [facility]. Timing/Duration: 1-2 Days Severity: Moderate Associated Systoms: Nausea/Vomiting Allergies and Home Medications Allergies Coded Allergies: azithromycin (Verified Allergy, Severe, 08/23/17) Home Medications Albuterol Sulfate 1 Puff Puff, 2 PUFF IH Q4H 1 PUFF = 90 MCG Prescribed by: ROM MCKEON on 01/09/2058 Cephalexin 500 Mg Tablet, 500 MG PO BID Prescribed by: JESS DUBON on 08/23/17 154 Clonazepam 1 Mg Tab.rapdis, 1 MG PO DAILY Prescribed by: FAVIO JORDAN on 10/22/20 194 Fluticasone/Salmeterol 1 Each Blst.w.dev, 1 EACH IH BID Prescribed by: ROM MCKEON on 01/09/2058 Mirtazapine 15 Mg Tablet, 15 MG PO HS, (Reported) Ondansetron 4 Mg Tab.rapdis, 4 MG SL Q4H PRN for NAUSEA/VOMITING-1ST LINE, (Reported) Ondansetron 4 Mg Tab.rapdis, 4 MG PO Q4H Prescribed by: ROM MCKEON on 01/09/2058 Promethazine HCl 25 Mg Tablet, 25 MG PO Q6H PRN for NAUSEA/VOMITING Prescribed by: FAVIO JORDAN on 10/22/201942 Tramadol HCl 50 Mg Tablet, 50 MG PO Q6H PRN for PAIN Prescribed by: ROM MCKEON on 01/09/2058 Patient Home Medication List Home Medication List Reviewed: Yes Review of Systems Review of Systems Constitutional: see HPI EENTM: see HPI Respiratory: no symptoms reported Cardiovascular: no symptoms reported Genitourinary: no symptoms reported Musculoskeletal: no symptoms reported Skin: no symptoms reported Psychiatric/Neurological: See HPI, Anxiety, Emotional Problems Hematologic/Lymphatic: No Symptoms Reported Immunological/Allergic: no symptoms reported Past Rxuohbw-Jzgmgy-Ykjjlj Hx Seasonal Allergies Seasonal Allergies: Yes Past Medical History Surgeries: Yes (PLEURAL EFFUSION-LEFT CHEST TUBE WITH PNEUMONIA CHILD;EGD/C-SCOPE) Respiratory: Yes (PNEUMONIA WITH LEFT CHEST TUBE CHILD;OCCASIONAL RESP INFECTION) Cardiac: No Neurological: No Reproductive Disorders: Yes (PT AND WITH INFERTILITY) Female Reproductive Disorders: Ovarian Cyst Genitourinary: No Gastrointestinal: No Musculoskeletal: No Endocrine: Yes (TYPE 1 DIABETES) Diabetes, Insulin dep HEENT: No Cancer: No Psychosocial: Yes Anxiety, Bipolar, Depression Integumentary: No Blood Disorders: No Family Medical History Diabetes Physical Exam Vital Signs Vital Signs - First Documented 10/22/20 18:15 Temp 36.5 Pulse 89 Resp 18 B/P (MAP) 121/76 (91) Pulse Ox 98 O2 Delivery Room Air Capillary Refill : Height, Weight, BMI Height: 5'6.00" Weight: 155lbs. oz. [id number]; 26.00 BMI Method:Stated General Appearance: No Apparent Distress, WD/WN, Anxious (Tearful cooperative) Eyes: Bilateral Eye Normal Inspection, Bilateral Eye PERRL, Bilateral Eye EOMI Neck: Full Range of Motion, Normal Inspection Respiratory: No Accessory Muscle Use, No Respiratory Distress Cardiovascular: Regular Rate, Rhythm, Normal Peripheral Pulses Gastrointestinal: Normal Bowel Sounds, Non Tender, Soft Extremity: Normal Capillary Refill, Normal Inspection Neurologic/Psychiatric: Alert, Oriented x3 Skin: Normal Color, Warm/Dry Progress/Results/Core Measures Suspected Sepsis SIRS Temperature: Pulse: Respiratory Rate: Laboratory Tests 10/22/20 18:22: White Blood Count 12.9H Blood Pressure / Mean: Laboratory Tests 10/22/20 18:22: Creatinine 0.83, Platelet Count 311, Total Bilirubin 0.4 Results/Orders Lab Results Laboratory Tests Test 10/22/20 18:22 Range/Units White Blood Count 12.9 H 4.3-11.0 10^3/uL Red Blood Count 5.56 H 3.80-5.11 10^6/uL Hemoglobin 14.6 11.5-16.0 g/dL Hematocrit 44 35-52 % Mean Corpuscular Volume 80 80-99 fL Mean Corpuscular Hemoglobin 26 25-34 pg Mean Corpuscular Hemoglobin Concent 33 32-36 g/dL Red Cell Distribution Width 15.2 H 10.0-14.5 % Platelet Count 311 130-400 10^3/uL Mean Platelet Volume 9.9 9.0-12.2 fL Immature Granulocyte % (Auto) 0 % Neutrophils (%) (Auto) 72 42-75 % Lymphocytes (%) (Auto) 22 12-44 % Monocytes (%) (Auto) 5 0-12 % Eosinophils (%) (Auto) 1 0-10 % Basophils (%) (Auto) 0 0-10 % Neutrophils # (Auto) 9.2 H 1.8-7.8 10^3/uL Lymphocytes # (Auto) 2.8 1.0-4.0 10^3/uL Monocytes # (Auto) 0.7 0.0-1.0 10^3/uL Eosinophils # (Auto) 0.1 0.0-0.3 10^3/uL Basophils # (Auto) 0.0 0.0-0.1 10^3/uL Immature Granulocyte # (Auto) 0.0 0.0-0.1 10^3/uL Urine Color YELLOW Urine Clarity CLEAR Urine pH 7.0 5-9 Urine Specific [place] 1.020 1.016-1.022 Urine Protein NEGATIVE NEGATIVE Urine Glucose (UA) 3+ H NEGATIVE Urine Ketones NEGATIVE NEGATIVE Urine Nitrite NEGATIVE NEGATIVE Urine Bilirubin NEGATIVE NEGATIVE Urine Urobilinogen 0.2 < = 1.0 MG/DL Urine Leukocyte Esterase NEGATIVE NEGATIVE Urine RBC (Auto) NEGATIVE NEGATIVE Urine RBC NONE /HPF Urine WBC 2-5 /HPF Urine Crystals NONE /LPF Urine Bacteria FEW H /HPF Urine Casts NONE /LPF Urine Mucus LARGE H /LPF Urine Culture Indicated YES Sodium Level 138 135-145 MMOL/L Potassium Level 3.9 3.6-5.0 MMOL/L Chloride Level 101 98-107 MMOL/L Carbon Dioxide Level 24 21-32 MMOL/L Anion Gap 13 5-14 MMOL/L Blood Urea Nitrogen 5 L 7-18 MG/DL Creatinine 0.83 0.60-1.30 MG/DL Estimat Glomerular Filtration Rate > 60 BUN/Creatinine Ratio 6 Glucose Level 258 H 70-105 MG/DL Calcium Level 9.8 8.5-10.1 MG/DL Corrected Calcium 9.4 8.5-10.1 MG/DL Total Bilirubin 0.4 0.1-1.0 MG/DL Aspartate Amino Transf (AST/SGOT) 13 5-34 U/L Alanine Aminotransferase (ALT/SGPT) 13 0-55 U/L Alkaline Phosphatase 116 40-136 U/L Total Protein 7.8 6.4-8.2 GM/DL Albumin 4.5 3.2-4.5 GM/DL Beta-Hydroxybutyrate (Chem panel) 0.08 0.00-0.27 MMOL/L My Orders Orders - FAVIO JORDAN APRN Beta Hydroxybutyrate (10/22/20 17:55) Cbc With Automated Diff (10/22/20 17:55) Comprehensive Metabolic Panel (10/22/20 17:55) Ua Culture If Indicated (10/22/20 17:55) Ed Iv/Invasive Line Start (10/22/20 17:55) Lorazepam Injection (Ativan Injection) (10/22/20 18:00) Ondansetron Injection (Zofran Injectio (10/22/20 18:00) Lactated Ringers (Lr 1000 Ml Iv Solution (10/22/20 18:15) Urine Culture (10/22/20 18:22) Lorazepam Injection (Ativan Injection) (10/22/20 19:00) Promethazine Injection (Phenergan Injec (10/22/20 19:45) Ziprasidone Injection (Geodon Injection) (10/22/20 20:45) Ziprasidone Injection (Geodon Injection) (10/22/20 20:45) Water (Sterile) For Injection (Sterile W (10/22/20 20:45) Medications Given in ED Current Medications Medications Dose Ordered Sig/David Route Start Time Stop Time Status Last Admin Dose Admin Lorazepam 0.5 mg ONCE PRN IVP 10/22/20 18:00 10/22/20 18:35 0.5 MG Lorazepam 0.5 mg ONCE PRN IVP 10/22/20 19:00 10/22/20 19:04 0.5 MG Ondansetron HCl 4 mg ONCE ONCE IVP 10/22/20 18:00 10/22/20 18:01 DC 10/22/20 18:35 4 MG Promethazine HCl 25 mg ONCE ONCE IVP 10/22/20 19:45 10/22/20 19:47 DC 10/22/20 19:53 25 MG Vital Signs/I&O 10/22/20 18:15 Temp 36.5 Pulse 89 Resp 18 B/P (MAP) 121/76 (91) Pulse Ox 98 O2 Delivery Room Air Capillary Refill : Departure Communication (Admissions) 193-she feels still a little nauseated. She states that she does not like taking her medication because it makes her feel like she is not a person. She states she does not feel any emotion when she is on the medication. She states that although she feels anxious now she at least feels like a person. She feels like her symptoms have been much worse for the past 4 months since she was started on her regimen of Lamictal and Effexor and Seroquel. Prior to this she never had these feelings of "not being a person". Since stopping them 1.5 weeks ago she feels like this withdrawal syndrome is exacerbating her bipolar symptoms. She feels like if she could get some help with the nausea and "right out" of the rest of this withdrawal symptom she would be better. She would like to be medication free. She has to take several of her lorazepam to notice any improvement at home but unknown what dosage these are. Her is at the bedside with her as he was last time. He is a good support system for her and they both feel safe going home. I specifically questioned her about any intent to harm herself and she says no. 32-patient states that she is still nauseated and just wants her discharge papers so that she can go home. She states that nothing is helping with her anxiety or nausea. I given her 8 mg of Zofran, 25 mg of Phenergan, 1 mg of lorazepam. She states that she will not hurt herself going home and her states that he feels safe taking her home. 2045-she now states that she feels like she wants to punch herself or somebody, she is tearful sobbing and would like some medication to help with her symptoms. She still nauseated but states that anxiety and agitation are her biggest symptoms. We have been going around and around, she wants medication to feel better and to help her sleep but then she does not want what I have to offer her. I have offered her inpatient admission which I told her would likely be very helpful for her during this acute phase of illness. She is not interested in that. We will give intramuscular Geodon 15mg which she has agreed upon to see if this helps with her anxiety agitation and to help her sleep.. Impression Primary Impression: Medication withdrawal Disposition: HOME, SELF-CARE Condition: Improved Departure-Patient Inst. Decision time for Depature: 19:00 Referrals: MAURICIO BULLOCK MD (PCP/Family) Primary Care Physician Patient Instructions: Drug Withdrawal (DC) Scripts Promethazine HCl (Promethazine Tablet) 25 Mg Tablet 25 MG PO Q6H PRN for NAUSEA/VOMITING, #10 TAB Prov: FAVIO JORDAN APRN 10/22/20 Clonazepam (Clonazepam) 1 Mg Tab.rapdis 1 MG PO DAILY, #5 TAB Prov: FAVIO JORDAN APRN 10/22/20 Copy Copies To 1: MAURICIO BULLOCK MD, PETER J APRN Oct 22, 2020 18:05
[2020-10-22] MEDS ORDERED: LACTATED RINGERS 1,000 ML IV SCH (18:15)
[2020-10-22 18:31] LABS: BASOPHILS % (AUTO) 0 % (0-10); EOSINOPHILS # (AUTO) 0.1 10^3/uL (0.0-0.3); EOSINOPHILS % (AUTO) 1 % (0-10); HEMATOCRIT 44 % (35-52); HEMOGLOBIN 14.6 g/dL (11.5-16.0); LYMPHOCYTES # (AUTO) 2.8 10^3/uL (1.0-4.0); LYMPHOCYTES % (AUTO) 22 % (12-44); MEAN CORPUSCULAR HEMOGLOBIN 26 pg (25-34); MEAN CORPUSCULAR HGB CONC 33 g/dL (32-36); MEAN CORPUSCULAR VOLUME 80 fL (80-99); MEAN PLATELET VOLUME 9.9 fL (9.0-12.2); MONOCYTES # (AUTO) 0.7 10^3/uL (0.0-1.0); MONOCYTES % (AUTO) 5 % (0-12); NEUTROPHILS # (AUTO) 9.2 10^3/uL (1.8-7.8); NEUTROPHILS % (AUTO) 72 % (42-75); PLATELET COUNT 311 10^3/uL (130-400); WHITE BLOOD COUNT 12.9 10^3/uL (4.3-11.0)
[2020-10-22 18:37] LABS: ALBUMIN 4.5 GM/DL (3.2-4.5); CHLORIDE 101 MMOL/L (98-107); POTASSIUM 3.9 MMOL/L (3.6-5.0); SODIUM 138 MMOL/L (135-145)
[2020-10-22 18:38] LABS: CALCIUM 9.8 MG/DL (8.5-10.1)
[2020-10-22 18:40] LABS: GLUCOSE 258 MG/DL (70-105); TOTAL PROTEIN 7.8 GM/DL (6.4-8.2)
[2020-10-22 18:41] LABS: BILIRUBIN,TOTAL 0.4 MG/DL (0.1-1.0); BILIRUBIN,URINE NEGATIVE (NEGATIVE); CARBON DIOXIDE 24 MMOL/L (21-32); CLARITY,URINE CLEAR; COLOR,URINE YELLOW; GLUCOSE, URINE (UA) 3+ (NEGATIVE); KETONES,URINE NEGATIVE (NEGATIVE); LEUKOCYTE ESTERASE ,URINE NEGATIVE (NEGATIVE); NITRITE,URINE NEGATIVE (NEGATIVE); PROTEIN,URINE NEGATIVE (NEGATIVE)
[2020-10-22 18:43] LABS: ALKALINE PHOSPHATASE 116 U/L (40-136); CREATININE SERUM 0.83 MG/DL (0.60-1.30); GFR ESTIMATED > 60
[2020-10-22 18:44] LABS: BUN/CREATININE RATIO 6
[2020-10-22 18:46] LABS: ALANINE AMINOTRANSFERASE 13 U/L (0-55)
[2020-10-22 18:51] LABS: BACTERIA,URINE FEW /HPF
[2020-10-22] MEDS ORDERED: PROM25TA14 PO (19:43)
[2020-10-22] MEDS ORDERED: CLON1TAB27 PO (19:43)
[2020-10-22] MEDS ORDERED: PROMETHAZINE INJ 25 MG/ML (PHENERGAN) AMP IVP ONE (19:45)
[2020-10-22] MEDS ORDERED: WATER (STERILE) FOR INJ 10 ML BTL INJ SCH (20:45)
[2020-10-22] MEDS ORDERED: ZIPRASIDONE 20 MG INJ (GEODON) VIAL IM ONE ×2 (20:45)
[2020-10-22 21:15] VITALS: BP 125/65
== END 2020-10-22 21:15 | disposition home or self-care (01) ==
LOC: EDUNIT# 17:42 → ER 17:44
DX: F19.239 Other psychoactive substance dependence with withdrawal, unspecified (principal); E10.9 Type 1 diabetes mellitus without complications; F32.9 Major depressive disorder, single episode, unspecified; F41.9 Anxiety disorder, unspecified; Z79.899 Other long term (current) drug therapy
CPT/HCPCS: 36415; 80053; 81000; 82010; 85025; 87088

== ENCOUNTER → 2023-01-24 | Outpatient (CLI) | payer OTHER ==
[~2023-01-24] MED LIST changes: +ALBU8.5H6 IH; +CLON1TAB27 PO; +MIRT-122 PO; -MIRT-96 PO; +PROM25TA14 PO; -RT-ALBUINH IH
--- NOTE | 2023-01-24 16:36 | Diagnostic Imaging Report ---
PROCEDURE: US PELVIC (NON OB) TECHNIQUE: Multiple real-time grayscale images were obtained over the pelvis in various projections transabdominally. INDICATION: Pelvic pain. History of ectopic . COMPARISON: None. FINDINGS: Uterus is anteverted and measures 8.7 x 2.6 x 4.6 cm. No suspicious myometrial masses are identified. Endometrial stripe is within normal limits and measures 4 mm in AP thickness. Visualized portions of the cervix are unremarkable. Right ovary is not well visualized due to positioning and overlying bowel gas. Left ovary has a normal sonographic appearance and measures 3.7 x 2.8 x 2.5 cm. No adnexal masses or free fluid are seen. IMPRESSION: 1. Nonvisualized right ovary. 2. Otherwise, unremarkable transpelvic sonogram. Dictated by: Dictated on workstation # [id number]
== END ==
LOC: RAD 14:51
PROVIDERS: ATTEND Obstetrics & Gynecology
DX: R10.2 Pelvic and perineal pain (principal)
CPT/HCPCS: 76856